=== PATIENT | female | born 1940 | race Caucasian/White ===

== ENCOUNTER 2022-07-19 08:14 | Day surgery (SDC) | payer OTHER ==
[~2022-07-19] VITALS: Ht 157.5 cm; Wt 52.2 kg
[2022-07-19] MEDS ORDERED: SYMBICORT 160-4.6 GM (08:41)
[2022-07-19] MEDS ORDERED: CARV25 PO (08:41)
[2022-07-19] MEDS ORDERED: CLOP75 PO (08:42)
[2022-07-19] MEDS ORDERED: Flonase 0.05% N16 GM (08:43)
[2022-07-19] MEDS ORDERED: HYDRA25 PO (08:44)
[2022-07-19] MEDS ORDERED: Isosorbide Mono30 MG (08:45)
[2022-07-19] MEDS ORDERED: HYDCHL25 PO (08:45)
[2022-07-19] MEDS ORDERED: LISI20 PO (08:46)
[2022-07-19] MEDS ORDERED: NITR.4SL SL (08:46)
[2022-07-19] MEDS ORDERED: Percocet 10-321 EACH PO (08:47)
[2022-07-19] MEDS ORDERED: PANT40 (08:48)
[2022-07-19] MEDS ORDERED: PREG75 (08:49)
--- NOTE | 2022-07-19 08:55 | NUR ---
07/19/22 0855 TIAGO PHAM TETRECAINE: [id number] PLEDGIT: [id number]
--- NOTE | 2022-07-19 10:10 | NUR ---
07/19/22 1010 Bernard Dubose PT STATES SHE HAS TAPE ALLERGY. TAPE ON EYESHIELD SWITCHED FROM PLASTIC TO PAPER.
== END 2022-07-19 10:11 | disposition home or self-care (01) ==
LOC: ORSCSDS 08:14
PROVIDERS: Ophthalmology
PROC: 08DJ3ZZ Extraction of Right Lens, Percutaneous Approach (ICD-10-PCS; principal; 2022-07-19 09:30)
DX: H25.11 Age-related nuclear cataract, right eye (principal); H21.81 Floppy iris syndrome; I25.2 Old myocardial infarction; I25.10 Atherosclerotic heart disease of native coronary artery without angina pectoris; K21.9 Gastro-esophageal reflux disease without esophagitis; Z79.01 Long term (current) use of anticoagulants; Z79.899 Other long term (current) drug therapy
CPT/HCPCS: J2001; J2250; J3010; J3301; J7040; V2632

== ENCOUNTER 2022-08-09 06:48 | Day surgery (SDC) | payer OTHER ==
[~2022-08-09] VITALS: Ht 157.5 cm; Wt 51.6 kg
[~2022-08-09 06:48] MED LIST: CARV25 PO; CLOP75 PO; Flonase 0.05% N16 GM; HYDCHL25 PO; HYDRA25 PO; Isosorbide Mono30 MG; LISI20 PO; NITR.4SL SL; PANT40; PREG75; Percocet 10-321 EACH PO; SYMBICORT 160-4.6 GM
[2022-08-09] MEDS ORDERED: Cymbalta20 MG PO (07:36)
[2022-08-09] MEDS ORDERED: METO25ER PO (07:36)
[2022-08-09 09:29] VITALS: BP 211/103
--- NOTE | 2022-08-09 09:36 | NUR ---
08/09/22 09[address] Valerie [address]ousse[address]ATE ENTRY [address] TOTH INTO SEE THE PT AND HER SON LIBRADO. HE INSTRUCTED THEM TO BE SEEN AT THE OFFICE TODAY AT 1:30PM, FURTHER INSTRUCTIONS WILL BE GIVEN AT THAT TIME. PT AND SON LIBRADO AGREE TO PLAN.
== END 2022-08-09 09:36 | disposition home or self-care (01) ==
LOC: ORSCSDS 06:48
PROVIDERS: Ophthalmology
PROC: 08RK3JZ Replacement of Left Lens with Synthetic Substitute, Percutaneous Approach (ICD-10-PCS; principal; 2022-08-09 08:00)
DX: H25.12 Age-related nuclear cataract, left eye (principal); H21.81 Floppy iris syndrome; I10 Essential (primary) hypertension; I25.2 Old myocardial infarction; Z79.899 Other long term (current) drug therapy
CPT/HCPCS: J2001; J2250; J3010; J3301; J7040; V2630

== ENCOUNTER → 2022-08-15 | Outpatient (CLI) | payer OTHER ==
[~2022-08-15] MED LIST changes: +Cymbalta20 MG PO; +METO25ER PO
== END | disposition home or self-care (01) ==
LOC: PLD 11:37 → LAB SHORT 11:37
DX: C44.311 Basal cell carcinoma of skin of nose (principal); C44.319 Basal cell carcinoma of skin of other parts of face; L57.0 Actinic keratosis
CPT/HCPCS: 88305

== ENCOUNTER 2022-12-28 12:10 | Emergency (ER) | payer OTHER ==
[~2022-12-28] VITALS: Ht 152.4 cm; Wt 54.4 kg
[~2022-12-28 12:10] MED LIST changes: +DOCU100 PO; +DULCOLAX400 MG/5 M PO; -Isosorbide Mono30 MG; +Isosorbide Mono30 MG PO; +LATA.005SO BOTHEYES; +METO50ER PO; -PANT40; +PANT40 PO; +TIMO.5OPSO LEFTEYE
[2022-12-28 13:05] VITALS: BP 120/80
[2022-12-28 13:50] LABS: BASOPHILS ABSOLUTE AUTO 0.02 K/mm3 (0.00-0.23); BASOPHILS PERCENT AUTO 0 % (0-2); EOSINOPHILS ABSOLUTE AUTO 0.23 K/mm3 (0.00-0.68); EOSINOPHILS PERCENT AUTO 3 % (0-6); Hematocrit 30.1 % (33.0-51.0); Hemoglobin 10.1 g/dL (11.5-16.0); IMMATURE GRAN ABSOLUTE AUTO 0.01 K/mm3 (0.00-0.10); IMMATURE GRAN PERCENT AUTO 0 % (0-1); LYMPHOCYTES ABSOLUTE AUTO 1.22 K/mm3 (0.84-5.20); LYMPHOCYTES PERCENT AUTO 18 % (21-46); MONOCYTES ABSOLUTE AUTO 0.57 K/mm3 (0.16-1.47); MONOCYTES PERCENT AUTO 8 % (4-13); Mean Corpuscular HGB 30.8 pg (26.0-34.0); Mean Corpuscular HGB Conc 33.6 g/dL (31.5-36.5); Mean Corpuscular Volume 92 fL (80-100); Mean Platelet Volume 10.2 fL (9.1-12.4); NEUTROPHILS ABSOLUTE AUTO 4.76 K/mm3 (1.96-9.15); NEUTROPHILS PERCENT AUTO 70 % (41-73); Platelet Count 289 K/mm3 (150-400); RDW Coefficient Variation 13.1 % (11.7-14.2); RDW Standard Deviation 44.2 fL (35.1-46.3); Red Blood Cell Count 3.28 M/mm3 (3.80-5.20); White Blood Cell Count 6.81 K/mm3 (4.00-11.30)
[2022-12-28 14:09] LABS: Albumin, Blood 3.5 g/dL (3.4-5.0); Bilirubin, Total 0.5 mg/dL (0.1-1.0); Bun/Creatinine Ratio 17.9 (12.0-20.0); Calcium, Blood 8.9 mg/dL (8.5-10.1); Creatinine, Blood 0.73 mg/dL (0.40-1.00); Globulin, Blood 3.5 g/dL (2.2-4.0); Potassium, Blood 4.2 mmol/L (3.5-5.5)
== END 2022-12-28 15:49 | disposition left against medical advice (07) ==
LOC: ER 12:10
PROVIDERS: Physician Assistant
DX: R06.02 Shortness of breath (principal); Z53.29 Procedure and treatment not carried out because of patient's decision for other reasons
CPT/HCPCS: 71046; 80053; 84484; 85025; 93005; 93010; 99284-25

== ENCOUNTER 2023-02-05 08:39 | Emergency (ER) | payer OTHER ==
[~2023-02-05] VITALS: Ht 157.5 cm; Wt 55.8 kg
[2023-02-05 09:21] LABS: BASOPHILS ABSOLUTE AUTO 0.02 K/mm3 (0.00-0.23); BASOPHILS PERCENT AUTO 0 % (0-2); EOSINOPHILS ABSOLUTE AUTO 0.16 K/mm3 (0.00-0.68); EOSINOPHILS PERCENT AUTO 3 % (0-6); Hematocrit 25.7 % (33.0-51.0); Hemoglobin 8.5 g/dL (11.5-16.0); IMMATURE GRAN ABSOLUTE AUTO 0.02 K/mm3 (0.00-0.10); IMMATURE GRAN PERCENT AUTO 0 % (0-1); LYMPHOCYTES PERCENT AUTO 14 % (21-46); MONOCYTES ABSOLUTE AUTO 0.51 K/mm3 (0.16-1.47); MONOCYTES PERCENT AUTO 8 % (4-13); Mean Corpuscular HGB 30.6 pg (26.0-34.0); Mean Corpuscular HGB Conc 33.1 g/dL (31.5-36.5); Mean Corpuscular Volume 92 fL (80-100); Mean Platelet Volume 10.7 fL (9.1-12.4); NEUTROPHILS ABSOLUTE AUTO 4.89 K/mm3 (1.96-9.15); NEUTROPHILS PERCENT AUTO 75 % (41-73); Platelet Count 250 K/mm3 (150-400); RDW Coefficient Variation 14.1 % (11.7-14.2); Red Blood Cell Count 2.78 M/mm3 (3.80-5.20)
[2023-02-05 09:40] LABS: Albumin, Blood 3.5 g/dL (3.4-5.0); Albumin/Globulin Ratio 1.2 (0.8-1.8); Bilirubin, Total 0.3 mg/dL (0.1-1.0); Bun/Creatinine Ratio 18.1 (12.0-20.0); Calcium, Blood 8.5 mg/dL (8.5-10.1); Creatinine, Blood 0.77 mg/dL (0.40-1.00); Globulin, Blood 2.9 g/dL (2.2-4.0); Potassium, Blood 3.5 mmol/L (3.5-5.5); Total Protein, Blood 6.4 g/dL (6.4-8.2)
[2023-02-05] MEDS ORDERED: K-Dur10 MEQ PO (11:16)
[2023-02-05] MEDS ORDERED: FURO20 PO (11:16)
[2023-02-05 11:30] VITALS: BP 120/77
== END 2023-02-05 11:38 | disposition home or self-care (01) ==
LOC: ER 08:39
PROVIDERS: Emergency Medicine
DX: I50.9 Heart failure, unspecified (principal); Z91.048 Other nonmedicinal substance allergy status; Z79.899 Other long term (current) drug therapy; M06.9 Rheumatoid arthritis, unspecified
CPT/HCPCS: 71046; 80053; 83880; 84484; 85025; 93005; 93010; 96374; 99285-25; A9270; J1940

== ENCOUNTER 2023-10-01 03:34 | Emergency (ER) | payer OTHER ==
[~2023-10-01] VITALS: Ht 165.1 cm; Wt 59.0 kg
[~2023-10-01 03:34] MED LIST changes: +FURO20 PO; +K-Dur10 MEQ PO
[2023-10-01] MEDS ORDERED: Ondansetron HCl 2 MG / ML 2ML Vial IV ONE (03:45)
[2023-10-01] MEDS ORDERED: NS 1,000 ML IV SCH (03:45)
[2023-10-01 03:53] LABS: BASOPHILS ABSOLUTE AUTO 0.03 K/mm3 (0.00-0.23); BASOPHILS PERCENT AUTO 0 % (0-2); EOSINOPHILS ABSOLUTE AUTO 0.04 K/mm3 (0.00-0.68); EOSINOPHILS PERCENT AUTO 0 % (0-6); Hematocrit 38.1 % (33.0-51.0); Hemoglobin 12.9 g/dL (11.5-16.0); IMMATURE GRAN ABSOLUTE AUTO 0.06 K/mm3 (0.00-0.10); IMMATURE GRAN PERCENT AUTO 0 % (0-1); LYMPHOCYTES ABSOLUTE AUTO 0.84 K/mm3 (0.84-5.20); LYMPHOCYTES PERCENT AUTO 6 % (21-46); MONOCYTES ABSOLUTE AUTO 0.69 K/mm3 (0.16-1.47); MONOCYTES PERCENT AUTO 5 % (4-13); Mean Corpuscular HGB 30.5 pg (26.0-34.0); Mean Corpuscular HGB Conc 33.9 g/dL (31.5-36.5); Mean Corpuscular Volume 90 fL (80-100); Mean Platelet Volume 9.7 fL (9.1-12.4); NEUTROPHILS ABSOLUTE AUTO 13.46 K/mm3 (1.96-9.15); NEUTROPHILS PERCENT AUTO 89 % (41-73); Platelet Count 323 K/mm3 (150-400); RDW Standard Deviation 43.2 fL (35.1-46.3); Red Blood Cell Count 4.23 M/mm3 (3.80-5.20); White Blood Cell Count 15.12 K/mm3 (4.00-11.30)
[2023-10-01] MEDS ORDERED: SPIRONOLACTONE25 MG PO (04:10)
[2023-10-01] MEDS ORDERED: ENTRESTO 49 MG1 EAC7 PO (04:11)
[2023-10-01] MEDS ORDERED: FENTANYL1 EA10 TOP (04:11)
[2023-10-01 04:19] LABS: Albumin, Blood 4.6 g/dL (3.4-5.0); Bilirubin, Total 0.9 mg/dL (0.1-1.0); Bun/Creatinine Ratio 18.5 (12.0-20.0); Creatinine, Blood 0.7 mg/dL (0.40-1.00); Globulin, Blood 4.4 g/dL (2.2-4.0); Potassium, Blood 3.5 mmol/L (3.5-5.5)
[2023-10-01 05:00] VITALS: BP 177/104
[2023-10-01 05:03] LABS: Source, Urine Clean Catch
[2023-10-01 05:08] LABS: Bilirubin, Urine Neg (Neg); Blood, Urine 4+ (Neg); Glucose Qualitative, Urine 1+ (Neg); Ketones, Urine 2+ (Neg); Leukocyte Esterase, Urine Neg (Neg); Nitrite, Urine Neg (Neg); Protein, Urine 3+ (Neg); Urobilinogen, Urine NORM (Normal)
[2023-10-01 05:23] LABS: Appearance, Urine Clear (Clear); Color, Urine Yellow (P-Yellow)
[2023-10-01 05:24] LABS: Bacteria Not Seen /hpf; Squamous Epithelial Cells Not Seen /hpf (Few); White Blood Cells, Urine Not Seen /hpf (0-5)
[2023-10-01] MEDS ORDERED: Ondansetron Odt8 MG MM (05:31)
== END 2023-10-01 06:07 | disposition home or self-care (01) ==
LOC: ER 03:34
PROVIDERS: Emergency Medicine
DX: R11.2 Nausea with vomiting, unspecified (principal); Z87.891 Personal history of nicotine dependence; Z79.51 Long term (current) use of inhaled steroids; Z79.02 Long term (current) use of antithrombotics/antiplatelets; Z79.899 Other long term (current) drug therapy; Z88.8 Allergy status to other drugs, medicaments and biological substances
CPT/HCPCS: 71045; 80053; 81001; 84484; 85025; 93005; 93010; 96361; 96374; 99284-25; J2405; J7030

== ENCOUNTER 2024-04-26 15:25 | Inpatient (IN) | payer OTHER ==
[~2024-04-26] VITALS: Ht 157.5 cm; Wt 55.1 kg
[~2024-04-26 15:25] MED LIST changes: +ENTRESTO 49 MG1 EAC7 PO; +Etomidate 2MG / ML 10ML Vial IV ONE; +FENTANYL1 EA10 TOP; +LORazepam 2 MG/ML 1ML Injection IV ONE; +Ondansetron Odt8 MG MM; +Rocuronium Bromide 10 MG/ML 5ML Injection IV ONE; +SPIRONOLACTONE25 MG PO
[2024-04-26] MEDS ORDERED: Ipratropium/Albuterol SulF 2.5-0.5MG/3 ML Amp INH ONE (15:45)
[2024-04-26] MEDS ORDERED: Acetaminophen325 M1 PO (15:55)
[2024-04-26] MEDS ORDERED: ALBU90OI INH (15:55)
[2024-04-26 16:12] LABS: BASOPHILS ABSOLUTE AUTO 0.02 K/mm3 (0.00-0.23); BASOPHILS PERCENT AUTO 0 % (0-2); EOSINOPHILS ABSOLUTE AUTO 0.01 K/mm3 (0.00-0.68); EOSINOPHILS PERCENT AUTO 0 % (0-6); Hematocrit 31.9 % (33.0-51.0); Hemoglobin 10.5 g/dL (11.5-16.0); IMMATURE GRAN ABSOLUTE AUTO 0.03 K/mm3 (0.00-0.10); IMMATURE GRAN PERCENT AUTO 0 % (0-1); LYMPHOCYTES ABSOLUTE AUTO 1.41 K/mm3 (0.84-5.20); LYMPHOCYTES PERCENT AUTO 17 % (21-46); MONOCYTES ABSOLUTE AUTO 0.63 K/mm3 (0.16-1.47); MONOCYTES PERCENT AUTO 8 % (4-13); Mean Corpuscular HGB 30.3 pg (26.0-34.0); Mean Corpuscular HGB Conc 32.9 g/dL (31.5-36.5); Mean Corpuscular Volume 92 fL (80-100); Mean Platelet Volume 10.4 fL (9.1-12.4); NEUTROPHILS ABSOLUTE AUTO 5.99 K/mm3 (1.96-9.15); NEUTROPHILS PERCENT AUTO 74 % (41-73); Platelet Count 265 K/mm3 (150-400); RDW Coefficient Variation 14.3 % (11.7-14.2); RDW Standard Deviation 48.4 fL (35.1-46.3); Red Blood Cell Count 3.46 M/mm3 (3.80-5.20); White Blood Cell Count 8.09 K/mm3 (4.00-11.30)
[2024-04-26 16:20] LABS: CORONAVIRUS COVID-19 AG Negative (NEGATIVE); INFLUENZA A AG Positive (NEGATIVE); INFLUENZA B AG Negative (NEGATIVE)
[2024-04-26 16:24] LABS: Albumin, Blood 3.6 g/dL (3.4-5.0); Albumin/Globulin Ratio 0.9 (0.8-1.8); Bilirubin, Total 0.7 mg/dL (0.1-1.0); Bun/Creatinine Ratio 17.8 (12.0-20.0); Calcium, Blood 8.7 mg/dL (8.5-10.1); Creatinine, Blood 1.52 mg/dL (0.40-1.00); Globulin, Blood 3.9 g/dL (2.2-4.0); Potassium, Blood 5.5 mmol/L (3.5-5.5); Total Protein, Blood 7.5 g/dL (6.4-8.2)
[2024-04-26 17:07] LABS: Base Excess Venous -9.1 mmol/L; Bicarbonate Venous 17.7 mmol/L (24.0-30.0); PCO2 Venous 36.8 mmHg (38-42); pH Blood Venous 7.29 (7.34-7.37)
[2024-04-26] MEDS ORDERED: Ipratropium/Albuterol SulF 2.5-0.5MG/3 ML Amp INH SCH (17:35)
[2024-04-26] MEDS ORDERED: Metoclopramide HCl 5MG / ML 2ML Vial IV PRN (17:35)
[2024-04-26] MEDS ORDERED: Aspirin 325 MG Tab PO ONE (17:35)
[2024-04-26] MEDS ORDERED: Ondansetron HCl 2 MG / ML 2ML Vial IV PRN (17:35)
[2024-04-26] MEDS ORDERED: FLU VACC TS2024-25(6MOS UP)/PF 45 MCG/0.5 ML SYRINGE IM SCH (17:35)
[2024-04-26] MEDS ORDERED: Albuterol 2.5 MG/3 ML VIAL INH PRN (17:40)
[2024-04-26] MEDS ORDERED: HydrALAZINE HCl 20 MG / ML 1ML Vial IV PRN (17:40)
[2024-04-26] MEDS ORDERED: NS 1,000 ML IV SCH (17:40)
[2024-04-26 18:00] LABS: Magnesium, Blood 2.5 mg/dL (1.6-2.4)
[2024-04-26] MEDS ORDERED: Oseltamvir Phosphate 30 MG Cap PO SCH (18:00)
[2024-04-26 18:02] LABS: Thyroid Stimulating Hormone 1.21 uIU/mL (0.360-4.800)
[2024-04-26 19:25] LABS: Anti-Xa UFH, PHA Monitoring <0.10 IU/mL; International Normalized Ratio 1.04; Prothrombin Time Results 11.1 Sec (9.7-11.5)
[2024-04-26] MEDS ORDERED: Dose Adjust by Pharmacy XX STA (19:38)
[2024-04-26] MEDS ORDERED: Heparin Sodium 5000 Units/ML 1ML MDV IV ONE (19:40)
[2024-04-26] MEDS ORDERED: Heparin Sodium,Porcine/0.5 NS 500 ML IV SCH (19:40)
[2024-04-26 21:23] LABS: Base Excess Venous -5.2 mmol/L; Bicarbonate Venous 20.1 mmol/L (24.0-30.0); PCO2 Venous 48.1 mmHg (38-42); pH Blood Venous 7.27 (7.34-7.37)
[2024-04-26 21:40] LABS: Calcium, Blood 8.4 mg/dL (8.5-10.1); Creatinine, Blood 1.5 mg/dL (0.40-1.00); Potassium, Blood 4.5 mmol/L (3.5-5.5)
[2024-04-26] MEDS ORDERED: Sodium Bicarb 8.4% Inj 150 MEQ in Dextrose 5% 1,000 ML IV SCH (21:45)
[2024-04-26 23:43] LABS: Base Excess Venous -2.2 mmol/L; Bicarbonate Venous 22.3 mmol/L (24.0-30.0); PCO2 Venous 36.3 mmHg (38-42)
[2024-04-26 23:45] VITALS: BP 135/108
[2024-04-27] VITALS (43 sets, daily range): BP systolic 60–189; BP diastolic 38–169
[2024-04-27 02:54] LABS: BASOPHILS ABSOLUTE AUTO 0.02 K/mm3 (0.00-0.23); BASOPHILS PERCENT AUTO 0 % (0-2); EOSINOPHILS ABSOLUTE AUTO 0.02 K/mm3 (0.00-0.68); EOSINOPHILS PERCENT AUTO 0 % (0-6); Hematocrit 31.6 % (33.0-51.0); Hemoglobin 10.9 g/dL (11.5-16.0); IMMATURE GRAN ABSOLUTE AUTO 0.05 K/mm3 (0.00-0.10); IMMATURE GRAN PERCENT AUTO 1 % (0-1); LYMPHOCYTES ABSOLUTE AUTO 1.25 K/mm3 (0.84-5.20); LYMPHOCYTES PERCENT AUTO 13 % (21-46); MONOCYTES ABSOLUTE AUTO 0.68 K/mm3 (0.16-1.47); MONOCYTES PERCENT AUTO 7 % (4-13); Mean Corpuscular HGB 29.9 pg (26.0-34.0); Mean Corpuscular HGB Conc 34.5 g/dL (31.5-36.5); Mean Platelet Volume 10.5 fL (9.1-12.4); NEUTROPHILS ABSOLUTE AUTO 7.36 K/mm3 (1.96-9.15); NEUTROPHILS PERCENT AUTO 79 % (41-73); Platelet Count 193 K/mm3 (150-400); RDW Standard Deviation 44.7 fL (35.1-46.3); Red Blood Cell Count 3.64 M/mm3 (3.80-5.20); White Blood Cell Count 9.38 K/mm3 (4.00-11.30)
[2024-04-27 02:59] LABS: Mean Corpuscular Volume 87 fL (80-100)
[2024-04-27] MEDS ORDERED: Furosemide 10 MG/ML 4ML Vial ONE (03:09)
[2024-04-27] MEDS ORDERED: Metoprolol Tartrate 5 ML IV ONE (03:09)
[2024-04-27 03:10] LABS: Albumin, Blood 3.7 g/dL (3.4-5.0); Bilirubin, Total 0.4 mg/dL (0.1-1.0); Bun/Creatinine Ratio 19.6 (12.0-20.0); Calcium, Blood 8.6 mg/dL (8.5-10.1); Creatinine, Blood 1.58 mg/dL (0.40-1.00); Globulin, Blood 3.6 g/dL (2.2-4.0); Magnesium, Blood 2.3 mg/dL (1.6-2.4); Potassium, Blood 4.8 mmol/L (3.5-5.5); Total Protein, Blood 7.3 g/dL (6.4-8.2)
[2024-04-27] MEDS ORDERED: Furosemide 10 MG/ML 4ML Vial IV STA (03:12)
[2024-04-27] MEDS ORDERED: LORazepam 2 MG/ML 1ML Injection IV PRN (03:20)
[2024-04-27] MEDS ORDERED: LORazepam 2 MG/ML 1ML Injection IV ONE (03:30)
[2024-04-27] MEDS ORDERED: Furosemide 10 MG/ML 4ML Vial IV ONE (03:30)
[2024-04-27] MEDS ORDERED: Dose Adjust by Pharmacy XX STA ×3 (03:36→18:23)
--- NOTE | 2024-04-27 03:58 | NUR ---
NURSING NOTE 04/27/24 @ 0250 PT UP TO BEDSIDE COMMODE FOR BOWEL MOVEMENT. WHILE SITTING ON THE COMMODE, THE PATIENT'S HEART RATE INCREASED SIGNIFICANTLY FROM 80'S-90'S TO 150'S-170'S, SPIKING UP TO 190'S, PROMOTING A RAPID RESPONSE. INTERVENTIONS: - RAPID RESPONSE TEAM NOTIFIED, ARRIVED PROMPTLY. - PER MD ORDERS, PATIENT WAS ADMINISTERED 40MG IV LASIX AND 0.5MG IV ATIVAN FOR SYMPTOM MANAGEMENT. - BLOOD PRESSURE WAS INITALLY LOW (60/38) AND THEN REMAINED ELEVATED THROUGHOUT THE REST OF THE EVENT, NO CARDIOVERSION WAS PERFORMED. - CONTINUOUS MONITORING OF HEART RATE AND BLOOD PRESSURE WAS MAINTAINED. CLINICAL PROGRESSION: DESPITE INTERVENTIONS, THE PATIENT'S HEART RATE REMAINED ELEVATED AND PATIENT CONTINUED TO SHOW SIGNS OF SIGNIFICANT DISTRESS. DR. LOUIE RECOMMENDED TRANSFERRING THE PATIENT TO THE ICU FOR FURTHER MANAGEMENT. OUTCOME: PATIENT WAS TRANSFERRED TO THE ICU IN CRITICAL CONDITION. BEDSIDE HANDOFF WAS DONE WITH MILA.
[2024-04-27] MEDS ORDERED: Metoprolol Tartrate 1 MG/ML 5 ML VIAL IV ONE (04:15)
--- NOTE | 2024-04-27 04:19 | NUR ---
PCU TRANSFER TO ICU 2: PT ARRIVED TO THE UNIT AT 0315 ON BIPAP, AFIB RVR ON MONITOR WITH RATE 160-190'S, SBP 70-190'S. LUNGS COARSE T/O, SPO2 90<. JACY AT BEDSIDE. BEDSIDE REPORT RECEIVED FROM SHERI PALOMO. PT UNRESPONSIVE POST ATIVAN ADMINISTRATION IN PCU. JACY WITH DECISION TO INTUBATE. 0348: 10 ETOMIDATE, 80 ROCCURONIUM ADMINISTERED. RT BAGGIN PT, VSS. 0350: 7.5 ETT, 24 @ TEETH, BILAT. BREATH SOUNDS, EVEN CHEST RISE AND FALL. PT INTUBATED WITH SETTINGS AC/VC 18/380/10/100. 5 MG OF METOPROLOL GIVEN PER JACY; GOOD EFFECT, RATE 90-100'S. PT'S SON CALLED AND UPDATED ON CURRENT STATUS AND TREATMENT PLAN. TEMP CORTÉS PLACED; URINE CLEAR, YELLOW. OGT PLACED, CLAMPED.
[2024-04-27] MEDS ORDERED: propofoL 100 ML IV SCH (04:30)
[2024-04-27 04:44] LABS: Base Excess Venous -4.1 mmol/L; Bicarbonate Venous 20.2 mmol/L (24.0-30.0); PCO2 Venous 51.7 mmHg (38-42)
[2024-04-27 04:45] LABS: pH Blood Venous 7.26 (7.34-7.37)
[2024-04-27] MEDS ORDERED: Pantoprazole Sodium 40 MG Tab PO SCH (06:00)
[2024-04-27] MEDS ORDERED: HydrALAZINE HCl 20 MG / ML 1ML Vial IV PRN (06:05)
[2024-04-27] MEDS ORDERED: Pantoprazole Sodium 40 MG Injection IV SCH ×2 (06:20→09:00)
--- NOTE | 2024-04-27 06:26 | NUR ---
SHIFT SUMMARY: NO ACUTE CHANGES SINCE PREVIOUS NOTE; VSS. PT REMAINS INTUBATED AND SEDATED, VENT SETTINGS REMAIN THE SAME. PG PLACED TO DONN, PROPOFOL INITIATED AT 10 MCG. PT REMAINS UNRESPONSIVE TO PAIN STIMULI. HEPARIN GTT @ 14 UNITS/HR. WILL REPORT OFF TO ONCOMING RN.
[2024-04-27] MEDS ORDERED: Cetylpyridinium Chloride 1 EA MISC MT SCH (08:00)
[2024-04-27] MEDS ORDERED: Heparin Sodium 5000 Units/ML 1ML MDV SC SCH (09:00)
[2024-04-27] MEDS ORDERED: Metoprolol Succinate 50 MG TABCR PO SCH (09:00)
[2024-04-27] MEDS ORDERED: Clopidogrel Bisulfate 75 MG Tab PO SCH (09:00)
[2024-04-27] MEDS ORDERED: Ipratropium/Albuterol SulF 2.5-0.5MG/3 ML Amp INH PRN (10:10)
[2024-04-27] MEDS ORDERED: FentaNYL Citrate 50 MCG/ML 2 ML Injection IV PRN (10:15)
[2024-04-27 10:26] LABS: Base Excess Venous -1.5 mmol/L; Bicarbonate Venous 22.6 mmol/L (24.0-30.0); PCO2 Venous 44.6 mmHg (38-42); pH Blood Venous 7.34 (7.34-7.37)
[2024-04-27] MEDS ORDERED: Hydrogen Peroxide 1.5 % Solution MT SCH (12:00)
[2024-04-27] MEDS ORDERED: Oseltamvir Phosphate 30 MG Cap PO SCH (18:00)
--- NOTE | 2024-04-27 20:45 | NUR ---
ASSUMPTION OF CARE ASSUMED CARE OF PATIENT AT 1900, BEDSIDE SHIFT REPORT RECEIVED FROM MARTITA RN. PT RESTING IN BED, INTUBATED AND SEDATED. PROPOFOL INFUSING AT 40MCG/KG/MIN. PT RESPONSIVE TO NOXIOUS STIMULI, WITHDRAWS EXTREMITIES TO NOXIOUS STIMULI, MOVES EXTREMITIES AND SHOULDERS SPONTANEOUSLY, GRIMACES WITH ORAL CARE. PT DOES NOT OPEN EYES OR FOLLOW DIRECTION WHEN PROMPTED. HR 90-110'S AFIB, MAP >65. VENT SETTINGS AC/VC 14/375/5/30%, OXYGEN SATURATION >95%. ABDOMEN SOFT, BOWEL TONES ACTIVE THROUGHOUT. OG TUBE IN PLACE INFUSING VHP AT GOAL RATE OF 20MLS/HR WITH 30ML Q4H WATER FLUSH. CORTÉS IN PLACE PATENT DRAINING YELLOW URINE TO GRAVITY. PIV IN PLACE TO RAC AND LAC, POWERGLIDE IN PLACE TO DONN. HEPARIN INFUSING AT 11UNITS/KG/HR. BED IN LOWEST POSITON, CARE CONITNUES.
[2024-04-28] VITALS (46 sets, daily range): BP systolic 89–178; BP diastolic 73–141
[2024-04-28] MEDS ORDERED: Dose Adjust by Pharmacy XX STA ×3 (01:16→14:32)
[2024-04-28 04:04] LABS: Hematocrit 29.2 % (33.0-51.0); Hemoglobin 10.3 g/dL (11.5-16.0); Mean Corpuscular HGB 30.5 pg (26.0-34.0); Mean Corpuscular HGB Conc 35.3 g/dL (31.5-36.5); Mean Corpuscular Volume 86 fL (80-100); Mean Platelet Volume 10.5 fL (9.1-12.4); Platelet Count 218 K/mm3 (150-400); RDW Coefficient Variation 14.1 % (11.7-14.2); RDW Standard Deviation 44.4 fL (35.1-46.3); Red Blood Cell Count 3.38 M/mm3 (3.80-5.20); White Blood Cell Count 7.73 K/mm3 (4.00-11.30)
[2024-04-28 04:22] LABS: Bun/Creatinine Ratio 24.3 (12.0-20.0); Calcium, Blood 8.1 mg/dL (8.5-10.1); Creatinine, Blood 1.44 mg/dL (0.40-1.00); Potassium, Blood 3.2 mmol/L (3.5-5.5)
[2024-04-28] MEDS ORDERED: Potassium Chloride 40 MEQ in NS 250 ML IV ONE (05:25)
--- NOTE | 2024-04-28 06:12 | NUR ---
SHIFT SUMMARY NO ACUTE CHANGES THIS SHIFT. PT CONTINUES TO REST IN BED, INTUBATED AND SEDATED. PROPOFOL INFUSING AT 40MCG/KG/MIN. PT DOES NOT OPEN EYES OR FOLLOW DIRECTION WHEN PROMPTED. PT WITHDRAWS ALL EXTREMITIES TO NOXIOUS STIMULI, MOVES EXTREMITIES SPONTANEOUSLY. HR 90-110'S AFIB, MAP >65. VENT SETTINGS AC/VC 14/375/5/30%, OXYGEN SATURATION >95%. ABDOMEN SOFT, BOWEL TONES ACTIVE THROUGHOUT, VHP INFUSING AT GOAL RATE OF 20MLS WITH 30ML Q4H WATER FLUSH. TEMP CORTÉS IN PLACE PATENT DRAINING YELLOW URINE TO GRAVITY. POWERGLIDE IN PLACE TO DONN, PIV IN PLACE TO RAC AND LAC. HEPARIN INFUSING AT 10UNITS/KG/HR. BED IN LOWEST POSITION, CARE CONTINUES.
[2024-04-28] MEDS ORDERED: Furosemide 10 MG / ML 2ML Vial IV STA (08:42)
[2024-04-28] MEDS ORDERED: Metoprolol Tartrate 25 MG Tab PO SCH (09:00)
--- NOTE | 2024-04-28 09:51 | NUR ---
DR. AG AT BEDSIDE TO ASSESS POSSIBLE EXTUBATION. PATIENT PASSED SBT AND SEDATION VACATION. PATIENT EXTUBATED AT 0918. SHORTLY AFTER PATIENT PLACED BACK ON BIPAP. DR. AG AT BEDSIDE FOR POSSIBLE REINTUBATION GIVEN PT'S RR IS HIG 30'S LOW 40'S. PT ATTEMPTING TO USE BEDPAN AT THE MOMENT. DR. yDer DECIDING TO GIVE THE PATIENT A FEW MORE MINTUES RR AND TIDAL VOLUMES IMPROVING. WILL CONTINUE TO MONITOR PATIENT STATUS.
[2024-04-28] MEDS ORDERED: propofoL 100 ML IV SCH (10:00)
[2024-04-28] MEDS ORDERED: Acetaminophen 160MG / 5ML 10.15 UDC PO PRN (10:35)
[2024-04-28] MEDS ORDERED: Acetaminophen 325 MG TABLET PO PRN (11:55)
[2024-04-28] MEDS ORDERED: Oseltamvir Phosphate 30 MG Cap PT SCH (12:00)
[2024-04-28] MEDS ORDERED: Oseltamvir Phosphate 6 MG/ML 1MLORALSYR PT SCH (12:00)
[2024-04-28] MEDS ORDERED: Acetaminophen 325 MG Supp PR PRN (13:00)
[2024-04-28] MEDS ORDERED: FentaNYL Citrate 50 MCG/ML 2 ML Injection IV PRN (16:00)
[2024-04-28] MEDS ORDERED: Etomidate 2MG / ML 10ML Vial IV ONE (16:30)
--- NOTE | 2024-04-28 19:00 | NUR ---
ASSUMED CARE OF PT AT 1900 PT RESTING IN BED, ALERT AND ORIENTED TO SELF AND SITUATION. PT FOLLOWING COMMANDS AND ABLE TO MAKE HER NEEDS KNOWN. PT WEARING BI-PAP AND CONSISTENTLY TAKING OFF FACE, STS ITS UNCOMFORTABLE. PT EDUCATED ON IMPORTANCE, WILL CONTINUE TO REINFORCE. MAINTAINING O2 SATS>95%. LUNG SOUNDS COARSE T/O. AFIB RATE OF 100-110S ON MONITOR. INCREASES W/ ACTIVITY AND MOVEMENT. BP STABLE. PT AFEBRILE. NO SKIN ISSUES OBSERVED. PT HAS CORTÉS CATH, PATENT AND DRAINING CLEAR YELLOW URINE TO GRAVITY. CALL LIGHT W/ IN REACH. PLAN OF CARE ONGOING
[2024-04-28] MEDS ORDERED: Metoprolol Tartrate 1 MG/ML 5 ML VIAL IV PRN (20:00)
[2024-04-28] MEDS ORDERED: Ondansetron HCl 2 MG / ML 2ML Vial IV PRN (23:30)
[2024-04-29] VITALS (25 sets, daily range): BP systolic 141–188; BP diastolic 91–139
[2024-04-29] MEDS ORDERED: Digoxin 0.25 MG/ML 2ML Amp IV SCH (01:00)
[2024-04-29 01:31] LABS: Anion Gap 14 mmol/L (3-11); Blood Urea Nitrogen 28 mg/dL (8-24); Bun/Creatinine Ratio 23.9 (12.0-20.0); CO2, Blood 26 mmol/L (21-32); Calcium, Blood 8.7 mg/dL (8.5-10.1); Chloride, Blood 97 mmol/L (98-108); Creatinine, Blood 1.17 mg/dL (0.40-1.00); Digoxin (Lanoxin) 0.14 ug/mL (0.80-2.00); Glomerular Filtration Rate 46 (60-); Glucose, Blood 126 mg/dL (70-99); Potassium, Blood 3.4 mmol/L (3.5-5.5); Sodium, Blood 134 mmol/L (136-145)
[2024-04-29 05:35] LABS: Hemoglobin 10.3 g/dL (11.5-16.0); Mean Platelet Volume 10.8 fL (9.1-12.4); Platelet Count 219 K/mm3 (150-400)
--- NOTE | 2024-04-29 05:53 | NUR ---
End of shift summary. No acute events overnight. Pt was awake during most of shift. Pt aox2. Pt calls out for needs and does use call light- tried to get self out of bed. Requires redirection and safety education. Bed alarm in place and curtain/door open for frequent monitoring. PT did not tolerate bipap and wore 2l via nc t/o majority of shift, maintained sats >95%. Lung sounds remain coarse- pt has frequent weak cough. Pt given ice chips and tolerated well. Heparin infusion rate unchanged. Pt afib on monitor- required prn dose of lopressor for rate of 130-150s w/ little effect. Dr. Bray contacted and digoxin ordered. Pt rate after admin 120s. Bp stable. Pt afebrile during shift. Gannon cath patent w/ good output. Pt had 2 bms during shift. Pt assisted to bedside commode, pt remains weak. Pt repositioned self frequently and boosted in bed when needed. No skin issues noted. Plan of care ongoing
[2024-04-29] MEDS ORDERED: Clarify Drug Order XX ONE (06:05)
[2024-04-29 06:11] LABS: Bun/Creatinine Ratio 24.1 (12.0-20.0); Calcium, Blood 8.9 mg/dL (8.5-10.1); Creatinine, Blood 1.12 mg/dL (0.40-1.00); Potassium, Blood 3.3 mmol/L (3.5-5.5)
[2024-04-29] MEDS ORDERED: Potassium Chloride 40 MEQ in NS 250 ML IV ONE (06:50)
[2024-04-29] MEDS ORDERED: Sacubitril/Valsartan 24 MG-26 MG Tab PO SCH (09:00)
[2024-04-29] MEDS ORDERED: Metoprolol Succinate 50 MG TABCR PO SCH (09:00)
[2024-04-29] MEDS ORDERED: Oseltamvir Phosphate 6 MG/ML 1MLORALSYR PT SCH (10:23)
[2024-04-29] MEDS ORDERED: Heparin Sodium 5000 Units/ML 1ML MDV IV ONE (13:15)
--- NOTE | 2024-04-29 15:29 | NUR ---
PERSISTENT HYPERTENSION DESPITE AM MEDICATIONS. HR IMPROVED. DR. TY NOTIFIED AND ASSOCIATED ORDERS PLACED BY PROVIDER.
[2024-04-29] MEDS ORDERED: Isosorbide Mononitrate 30 MG TABCR PO SCH (16:00)
[2024-04-29] MEDS ORDERED: Spironolactone 25 MG Tab PO SCH (16:00)
--- NOTE | 2024-04-29 19:37 | NUR ---
PT A/O TO SELF, PLACE, FAMILY. REORIENTED TO DATE/TIME. TMAX 99.O TEMPORAL. LEFT PUPIL IRREGULAR. AFIB 120S-130S THIS MORNING. IV LOPRESSOR GIVEN WELL AM MEDICATIONS. HR IMPROVED, BP LARGELY UNCONTROLLED THROUGH SHIFT. ENTRESTO ADDED TO REGIMEN THIS MORNING. NOTIFIED DR. TY OF CONTINUED HTN. IMDUR AND ALDACTONE ADDED BACK FROM HOME MEDICATIONS. IV LOPRESSOR GIVEN AGAIN THIS AFTERNOON. PT ON 2LNC AT START OF SHIFT. O2 94% AND PATIENT CONTINUOUSLY REMOVING CANNULA FROM NOSE. PT ASSISTED TO CHAIR AROUND 1400 AND REMAINED IN CHAIR PER REQUEST WITH FAMILY VISITING REMAINDER OF SHIFT. PT PASSED SWALLOW EVAL AND STARTED ON LEVEL 6 DYSPHAGIA DIET. ATE A FEW BITES OF BREAKFAST BUT DECLINED LUNCH AND DINNER DESPITE ENCOURAGEMENT AND ASSISTANCE. SWALLOWS PILLS WHOLE WITH WATER WITH NO ISSUE. MULTIPLE SMALL BMS. CORTÉS REMOVED AM, URINATING VIA PUREWICK. MIDLINE AND PIV TO RUE. SAFETY, COMFORT, HYGIENE ADDRESSED. PT ASSISTED BACK TO BED AND BED ALARM ON.
[2024-04-29] MEDS ORDERED: Apixaban 5 MG Tab PO SCH (21:00)
[2024-04-30] VITALS (95 sets, daily range): BP systolic 109–205; BP diastolic 66–143
--- NOTE | 2024-04-30 01:04 | NUR ---
PT UPDATE: PERFORMED 12 LEAD ECG. PATIENT PRESENTS WITH ST DEPRESSION IN LEAD TWO THAT LOOKS LIKE IT STARTED AT ABOUT 1330, AROUND THE TIME THAT THE PATIENT GOT UP AND HAD A LOT OF EXERTION PER DAY SHIFT NURSE. ECG WAS UNREMARKABLE, NO SIGNIFICANT CHANGE FROM PREVIOUS ECG.
[2024-04-30 03:48] LABS: Bun/Creatinine Ratio 21.4 (12.0-20.0); Calcium, Blood 8.9 mg/dL (8.5-10.1); Creatinine, Blood 1.03 mg/dL (0.40-1.00); Potassium, Blood 3.7 mmol/L (3.5-5.5)
--- NOTE | 2024-04-30 05:32 | NUR ---
SHIFT SUMMARY: PT IS ALERT TO SELF AND AT TIME MORE LUCID. SHE IS PLEASANT, COOPERATIVE, AND REDIRECTABLE BUT FORGETFUL. PT HAD NOT BEEN TOLERATING THE BIPAP MASK NOR WOULD SHE WEAR OTHER SOURCES OF OXYGEN. HER SPO2 REMAINED ABOVE 90% ON ROOM AIR. HER HEART RATE WAS 90S-130S. SHE WAS TREATED WITH METOPROLOL FOR A RATE ABOVE 100. SHE REMAINS HYPERTENSIVE.
--- NOTE | 2024-04-30 06:17 | NUR ---
UPDATE SPOKE WITH JANICE ABOUT PTS ELEVATED BLOOD PRESSURE. REMAINS ELEVATED DESPITE MEDS. PT IS NOT RECEIVING THE CURRENT LEVEL OF PAIN MEDICATION THAT SHE DOES AT HOME. WILL TRY TO TREAT PAIN BETTER AND SEE IF THAT HELPS WITH HER BLOOD PRESSURE.
[2024-04-30] MEDS ORDERED: OxyCODONE HCL 5 MG TAB PO PRN (06:25)
[2024-04-30] MEDS ORDERED: OxyCODONE 10/Acetamin 325 TABLET PO PRN (07:40)
--- NOTE | 2024-04-30 08:34 | NUR ---
ASSUMED CARE OF PATIENT AT APPROXIMATELY 0700. REPORT RECEIVED FROM DARREN RN AND MILA RN. PT AWAKE IN BED, INTERACTING APPROPRIATELY WITH STAFF DURING BEDSIDE REPORT. CONTINOUS CARDIAC MONITORING IN PLACE SHOWS AFIB WITH HR IN 120'S-130'S. HYPERTENSIVE. HOSPITALIST AWARE AND MAKING CHANGES TO BP MEDICATIONS TO BE IMPLEMENTED THIS AM. RN TO NOTIFY IF BP DOES NOT IMPROVE IN 2 HOURS FOLLOWING MED ADMINISTRATION. ON 2LPM O2 VIA NC WITH SATURATION > 92%. SEE SHIFT ASSESSMENT FOR FULL DETAILS.
[2024-04-30] MEDS ORDERED: Sacubitril/Valsartan 49 MG/51 MG Tab PO SCH (09:00)
[2024-04-30] MEDS ORDERED: Metoprolol Succinate 50 MG TABCR PO SCH (09:00)
--- NOTE | 2024-04-30 09:55 | NUR ---
Pt. is awake and welcomes my visit. Pt. is pleasant, but does display some evidence of confusion. During our introduction family members who have travelled from [place] arrived. Pt. welcomed prayer. Prayed for Pt. Pt. and family verbalized gratitude for the spiritual care visit.
[2024-04-30] MEDS ORDERED: Labetalol HCL 5 MG/ML 4ML Injection (Single Dose) IV PRN (13:25)
[2024-04-30] MEDS ORDERED: Isosorbide Mononitrate 30 MG TABCR PO STA (13:36)
[2024-04-30] MEDS ORDERED: Spironolactone 25 MG Tab PO STA (13:37)
[2024-04-30] MEDS ORDERED: LORazepam 2 MG/ML 1ML Injection IV ONE (13:40)
[2024-04-30] MEDS ORDERED: Nitroglycerin/D5W 250 ML IV SCH (15:05)
[2024-04-30] MEDS ORDERED: Furosemide 10 MG / ML 2ML Vial IV ONE (15:10)
[2024-04-30] MEDS ORDERED: NiCARdipine HCL 50 MG in NS 250 ML IV SCH (16:45)
--- NOTE | 2024-04-30 18:47 | NUR ---
SHIFT SUMMARY AT APPROXIMATELY 1345 PT BECAME TACHYPNEIC WITH INCREASED WOB WHILE IN BEDSIDE CHAIR. PT WAS MOVED BACK TO BED AND PLACED ON BIPAP WITH SETTINGS OF 16/5 AND 30% PER RT. STAT ORDERS FOR IV LABETOLOL AND ADDITIONAL PO IMDUR AND SPIRONOLACTONE ORDERED PER HOSPITALIST. IV LABETOLOL WAS ADMINISTERED, HOWEVER PT MENTATION WOULD NOT ALLOW PO MEDICATION INTAKE SAFELY, SO THEY WERE HELD PER DR. AG AND A NITRO DRIP WAS STARTED. TITRATED WITH LITTLE TO NO EFFECT. FURTHER INTERVENTION WITH NICARDIPINE WAS STARTED. NITRO HAS SINCE BEEN TITRATED OFF AND NICARDIPINE IS INFUSING AT 7.5 MG/HR, SBP GOAL 140'S-150'. FAMILY AT BEDSIDE T/O ENTIRETY OF SHIFT AND UPDATED ON POC FREQUENTLY. WILL CONTINUE TO MONITOR AND REPORT TO ONCOMING RN.
--- NOTE | 2024-04-30 21:00 | NUR ---
ASSUMPTION OF CARE/ASSESSMENT: ASSUMED CARE OF PT AT 1900; REPORT RECIEVED FROM DELFINO PALOMO. PT SOMULENT IN BED, AROUSES TO VERBAL STIMULI AND DOES NOT FOLLOW DIRECTIONS AT THIS TIME. CURRENTLY BIPAP IN PLACE WITH SETTINGS 16/5, FI02 30% AND RATE OF 16; LUNGS CLEAR/DIM THROUGHOUT, SPO2 100. AFIB ON MONITOR WITH HR 90-100, NICARDIPINE GTT @ 7.5 MG/HR, SBP 110-120'S. PT HAS PUREWICK IN PLACE, YELLOW/CLOUDY URINE OUTPUT; ATTENDS IN PLACE, PT INCONTINENT AT THIS TIME. LIN IN BED, OBSERVED RESTLESS AND UNABLE TO GET COMFORTABLE IN BED DESPITE MULTIPLE REPOSITIONS. PT'S GRAND-DAUGHTER AT BEDSIDE WITH PLANS TO SPEND THE NIGHT. BED LOWERED, CALL LIGHT IN REACH.
[2024-05-01] VITALS (80 sets, daily range): BP systolic 88–155; BP diastolic 53–101
[2024-05-01 03:58] LABS: Bun/Creatinine Ratio 23.8 (12.0-20.0); Calcium, Blood 9.3 mg/dL (8.5-10.1); Creatinine, Blood 1.05 mg/dL (0.40-1.00); Potassium, Blood 3.3 mmol/L (3.5-5.5)
[2024-05-01] MEDS ORDERED: Potassium Chloride 40 MEQ in NS 250 ML IV ONE (05:30)
--- NOTE | 2024-05-01 05:49 | NUR ---
SHIFT SUMMARY: NO ACUTE CHANGES OVERNIGHT. SHORTLY AFTER 2100 NICARDIPINE GTT TITRATED OFF, PT SBP MAINTAINED 110-130'S FOR THE MAJORITY OF THE NIGHT. PT WAS SOMNOLENT AND UNABLE TO TAKE NIGHT TIME PO MEDS. AROUND 0300 SBP SUSTAINING IN 150'S AND NICARDIPINE GTT RESTARTED; CURRENTLY NICARDIPINE IS AT 5 MG/HR. PUREWICK REMAINS IN PLACE WITH GOOD URINE OUTPUT THIS SHIFT. NC @ 4LPM, PT LUNGS SOUND COARSE, PROMPTED TO COUGH AND USE FLUTTER VALVE THIS MORNING; PT RECEPTIVE TO TEACHING BUT OBSERVED WEAK WHEN ATTEMPTING TO USE FLUTTER VALVE. GOOD COUGH BUT FATIGUED EASILY. FAMILY EDUCATED AND INVOLVED IN PROMTING COUGHING AND FLUTTER VALVE USE. PT MORE ALERT TO VERBAL STIMULI THIS MORNING, CONTINUES TO BE DROWSY. WILL REPORT OFF TO ONCOMING RN.
--- NOTE | 2024-05-01 08:10 | NUR ---
ALLEN WAS SLEEPING DURING BSR ON NC. SHE AWAKENED TO VOICE, WAS REPOSITIONED, ANSWERED THAT SHE KNEW WHERE SHE WAS. WAS ABLE TO COUGH WHEN ASKED, LUNGS COARSE T/O WITH RHONCHI AND EXP. WHEEZE, GRANDDAUGHTER AWAY AT THE TIME. NOW BEGINS TO DESATURATE, PT PLACED ON BIPAP, SAME SETTINGS, INCREASED FIO2 TO 35% THEN TO 40% TO ACHIEVE SATS OF 90%.
[2024-05-01] MEDS ORDERED: Furosemide 20 MG Tab PO SCH (09:00)
[2024-05-01] MEDS ORDERED: Furosemide 10 MG / ML 2ML Vial IV SCH (09:00)
[2024-05-01] MEDS ORDERED: Isosorbide Mononitrate 60 MG TABCR PO SCH (09:00)
[2024-05-01] MEDS ORDERED: Spironolactone 50 MG Tab PO SCH (09:00)
--- NOTE | 2024-05-01 09:05 | NUR ---
HOLDING ON PT'S ORAL MEDS AT THIS TIME, CONTINUE ON BIPAP. WILL READDRESS IN HALF HOUR.
--- NOTE | 2024-05-01 12:50 | NUR ---
Pt. is somnolent. Family are at bedside and welcome my visit. Facilitated a life review and established rapport with family members at bedside. Some pastoral carer is given as info regarding eucharistic services that are offered. Family verbalized gratitude for the spiritual care visit.
[2024-05-01] MEDS ORDERED: OxyCODONE HCL 5 MG TAB PO PRN ×2 (14:45→18:00)
[2024-05-01] MEDS ORDERED: OxyCODONE HCL 5 MG TAB PO ONE (17:35)
--- NOTE | 2024-05-01 18:23 | NUR ---
ALLEN HAS BEEN AWAKE FOR THE MAJORITY OF THE AFTERNOON, CONTINUES ON NC @ 6L, WILL PUT ON BIPAP PRIOR TO BEDTIME PER SUGGESTION. SHE HAS TAKEN IN SOME NUTRITION, ACTUALLY EATING A GRILLED CHEESE SANDWICH BROUGHT IN BY FAMILY. SHE IS TAKING IN WATER, COUGH IS STRONG, BEGINNING TO CLEAR. BLOOD PRESSURE HAS REMAINED STABLE AND NICARDIPINE GTT IS OFF. FAMILY HAS BEEN IN FOR THE MAJORITY OF THE DAY. HEATING PAD ON THE NECK AND NECK PILLOW BROUGHT IN FROM THE FAMILY. HEART RATE REMAINS STABLE <100.
--- NOTE | 2024-05-01 21:30 | NUR ---
PATIENT UPDATE: PATIENT ATTEMPTED BIPAP PER ANCELMO'S REQUEST FOR SLEEP. SHE SAID IT WAS CAUSING HER PAIN TP HER NOSE AND HER HEAD AND NECK FROM THE STRAPS. SHE WAS NOT TOLERATING AND MOVED IT FREQUENTLY. PLACED BACK ON NASAL CANNULA AT 2130. NO SIGNIFICANT CHANGE IN VITAL SIGNS OR PRESENTATION BETWEEN NASAL CANNULA AND BIPAP.
[2024-05-02] VITALS (50 sets, daily range): BP systolic 96–173; BP diastolic 61–155
[2024-05-02 03:47] LABS: Hematocrit 29.9 % (33.0-51.0); Hemoglobin 10.2 g/dL (11.5-16.0); Mean Corpuscular HGB Conc 34.1 g/dL (31.5-36.5); Mean Corpuscular Volume 88 fL (80-100); Mean Platelet Volume 10.7 fL (9.1-12.4); Platelet Count 271 K/mm3 (150-400); RDW Coefficient Variation 13.9 % (11.7-14.2); RDW Standard Deviation 44.9 fL (35.1-46.3); White Blood Cell Count 12.45 K/mm3 (4.00-11.30)
[2024-05-02 04:06] LABS: Albumin, Blood 3.1 g/dL (3.4-5.0); Albumin/Globulin Ratio 0.8 (0.8-1.8); Bilirubin, Total 0.8 mg/dL (0.1-1.0); Bun/Creatinine Ratio 27.4 (12.0-20.0); Calcium, Blood 8.9 mg/dL (8.5-10.1); Creatinine, Blood 0.95 mg/dL (0.40-1.00); Globulin, Blood 4.1 g/dL (2.2-4.0); Magnesium, Blood 1.7 mg/dL (1.6-2.4); Potassium, Blood 3.7 mmol/L (3.5-5.5); Total Protein, Blood 7.2 g/dL (6.4-8.2)
[2024-05-02 04:28] LABS: BAND PERCENT MAN 1 % (0-8); BASOPHILS PERCENT MAN 0 % (0-2); EOSINOPHILS PERCENT MAN 0 % (0-6); LYMPHOCYTES ABSOLUTE MAN 1.36 K/mm3 (0.84-5.20); LYMPHOCYTES PERCENT MAN 11 % (21-46); MONOCYTES ABSOLUTE MAN 0.49 K/mm3 (0.16-1.47); MONOCYTES PERCENT MAN 4 % (4-13); MYELOCYTE ABSOLUTE MAN 0.12 K/mm3 (0.00-0.00); MYELOCYTE PERCENT MAN 1 % (0-0); NEUTROPHILS ABSOLUTE MAN 10.45 K/mm3 (1.96-9.15); SEG NEUTROPHILS PERCENT MAN 83 % (41-73); TOTAL CELLS COUNTED 100
[2024-05-02] MEDS ORDERED: Lidocaine 4% 1 Patch TOP PRN (04:35)
[2024-05-02] MEDS ORDERED: Sodium Phosphate 20 MM in Dextrose 5% 500 ML IV ONE (05:30)
--- NOTE | 2024-05-02 06:42 | NUR ---
SHIFT SUMMARY: NO EVENTS OVERNIGHT. PT HAS BEEN APPROPRIATE AND FOLLOWING COMMANDS. SHE HAS BEEN IN HIGH SPIRITS AND HER GRANDDAUGHTER STAYED THE NIGHT WITH HER. HER HR HAS BEEN 80S-110S AFIB ON THE MONITOR. SHE HAS INFERIOR ST DEPRESSION THAT HAS BEEN ONGOING, OCCASIONAL PVCS. SHE HAS REMAINED NORMOTENSIVE WITHIN PARAMETERS SET BY PROVIDER. PT DID NOT TOLERATE BIPAP, BUT HER SPO2 AND WORK OF BREATHING WERE WNL. SHE DOES DESATURATE QUICKLY IF SHE TAKES THE OXYGEN OFF. NO COMPLAINT OF CHEST PAIN OR SOB. COMPLAINS OF CHRONIC PAIN. URINE OUTPUT HAS BEEN ADEQUATE. PT DID SPEAK WITH HER FAMILY YESTERDAY AND DECIDED TO CHANGE HER CODE STATUS FROM DNI TO FULL CODE.
[2024-05-02] MEDS ORDERED: Sacubitril/Valsartan 49 MG/51 MG Tab PO SCH ×2 (09:00→21:00)
[2024-05-02] MEDS ORDERED: FentaNYL 12 MCG/HR Patch TOP SCH (09:55)
[2024-05-02] MEDS ORDERED: FentaNYL 25 MCG Patch TOP SCH (10:00)
--- NOTE | 2024-05-02 11:27 | NUR ---
Met with pt's son Francis yesterday morning while the patient was sleeping. We discussed the "DNI" (Do not intubate) order the patient had requested. We discusse different scenarios and reasons the DNI wouldn't be appropriate in a code scenario. The pt's son request he talk with the patient about it. Today, noted pt is a Full Code. Will follow up.
--- NOTE | 2024-05-02 13:11 | NUR ---
ALLEN HAS BEEN AWAKE THE MAJORITY OF THE DAY. SHE HAS ONLY DOZED BRIEFLY FOR A FEW MINUTES AT A TIME. SHE HAS TAKEN IN SOME POTATOES THAT THE [employer] BOUGHT DOWNSTAIRS IN THE [place] FOR BREAKFAST. SHE WAS EATING SOME PIZZA THAT THE [employer] BROUGHT HER FOR LUNCH. SHE HAS TAKEN SOME ENSURE. WE HAD REQUESTED A CHOCOLATE ENSURE, WILL TRY WHEN AVAILABLE. REMAINS IN AFIB, RATE <100. SBP <140. SATS REMAIN >95% ON NC, 4L.
[2024-05-02] MEDS ORDERED: Promethazine HCl 12.5 MG Supp PR ONE (18:35)
--- NOTE | 2024-05-02 19:22 | NUR ---
SUMMARY OF LAST HOUR: ALLEN HAS BEEN COUGHING QUITE A BIT THIS AFTERNOON, MAKING IT DIFFICULT FOR HER TO REST. SHE IS COUGHING UP SOME THICK WHITE/YELLOW PHLEGM. EARLIER TODAY WHILE FINISHING HER MEDICATIONS SHE HAD EMESIS WITH PHLEGM. SHE DID NOT THROW UP ANY MEDICATIONS, ONLY FLUIDS. THE SAME HAPPENED THIS EVENING AFTER A COUGHING EPISODE. SHE WAS USING HER KLEENEX, DIDN'T THINK SHE WAS GOING TO GET SICK AND THEN SHE THREW UP. WAS PRESENT, HE ORDERED A ONE TIME DOSE OF PHENERGAN SUPPOSITORY, GIVEN AND PT CLEANED UP. SHE IS A BIT FORGETFUL TONIGHT BUT REMAINS PLEASANT AND COOPERATIVE. REPORT GIVEN TO DEWEY MARTI.
--- NOTE | 2024-05-02 20:14 | NUR ---
ASSSUMPTION OF CARE THIS NURSE ASSUMED CARE AT APPROXIMATELY 1900. THIS NURSE GAVE REPORT TO PCU NURSE AT 2000. PT APPEARED TO BE RESTING IN BED WITHOUT COMPLAINT ON NC WITH FAMILY IN THE ROOM. PT WAS TRANSFERED OUT OF ICU TO PCU AT APPROXIMATELY 2014.
--- NOTE | 2024-05-02 23:21 | NUR ---
PATIENT TRANSFER AT 2018 PT ARRIVED TO ROOM 14 VIA BED FROM ICU,FAMILY BY HER SIDE.PT COMPLAINED OF PAIN WITH MOVEMENT.HEATING PAD APPLIED TO NECK.PLAN OF CARE REVIEWED WITH PT AND FAMILY.PT REPORTS PAIN IN NECK BUT NOT ABLE TO STATE THE INTENSITY USING THE NUMBER SCALE.SEE MAR FOR PRN PAIN MED ADMINISTRATION.DENIES FURTHER NEEDS WILL CONTINUE TO MONITOR.
[2024-05-03 00:30] VITALS: BP 148/89
[2024-05-03 04:06] VITALS: BP 134/86
[2024-05-03 04:09] LABS: BASOPHILS ABSOLUTE AUTO 0.03 K/mm3 (0.00-0.23); BASOPHILS PERCENT AUTO 0 % (0-2); EOSINOPHILS PERCENT AUTO 2 % (0-6); Hematocrit 32.3 % (33.0-51.0); Hemoglobin 10.8 g/dL (11.5-16.0); IMMATURE GRAN ABSOLUTE AUTO 0.13 K/mm3 (0.00-0.10); IMMATURE GRAN PERCENT AUTO 1 % (0-1); LYMPHOCYTES ABSOLUTE AUTO 1.52 K/mm3 (0.84-5.20); LYMPHOCYTES PERCENT AUTO 15 % (21-46); MONOCYTES ABSOLUTE AUTO 1.21 K/mm3 (0.16-1.47); MONOCYTES PERCENT AUTO 12 % (4-13); Mean Corpuscular HGB 29.8 pg (26.0-34.0); Mean Corpuscular HGB Conc 33.4 g/dL (31.5-36.5); Mean Corpuscular Volume 89 fL (80-100); Mean Platelet Volume 10.6 fL (9.1-12.4); NEUTROPHILS ABSOLUTE AUTO 7.06 K/mm3 (1.96-9.15); NEUTROPHILS PERCENT AUTO 70 % (41-73); Platelet Count 329 K/mm3 (150-400); RDW Coefficient Variation 13.8 % (11.7-14.2); RDW Standard Deviation 45.1 fL (35.1-46.3); Red Blood Cell Count 3.62 M/mm3 (3.80-5.20); White Blood Cell Count 10.15 K/mm3 (4.00-11.30)
[2024-05-03 04:28] LABS: Albumin, Blood 2.9 g/dL (3.4-5.0); Anion Gap 12 mmol/L (3-11); Blood Urea Nitrogen 22 mg/dL (8-24); Bun/Creatinine Ratio 22.5 (12.0-20.0); CO2, Blood 31 mmol/L (21-32); Chloride, Blood 92 mmol/L (98-108); Creatinine, Blood 0.98 mg/dL (0.40-1.00); Glomerular Filtration Rate 57 (60-); Glucose, Blood 106 mg/dL (70-99); Potassium, Blood 3.6 mmol/L (3.5-5.5); Sodium, Blood 131 mmol/L (136-145)
--- NOTE | 2024-05-03 06:45 | NUR ---
SHIFT SUMMARY PT SLEPT AFTER RECEIVING PRN OXYCODONE 10MG PO.PT'S DAUGHTER STATES THAT PT HAS NOT SLEPT THAT GOOD IN A WHILE.GIVEN ANOTHER DOSE OF PRN PAIN MED THIS MORNING.PT HAS MAINTAINED OXYGEN SATURATION >95 ON 4L.DENIES SOB,DENIES NEEDS.CALL LIGHT AND PT'S ITEMS WITHIN REACH.WILL REPORT TO INCOMING NURSE.
[2024-05-03 07:39] VITALS: BP 124/78
[2024-05-03] MEDS ORDERED: Potassium Chloride 20 MEQ TabCR PO SCH (08:00)
[2024-05-03] MEDS ORDERED: Furosemide 10 MG/ML 4ML Vial IV SCH (09:00)
[2024-05-03] MEDS ORDERED: Benzonatate 100 MG Cap PO PRN (09:25)
[2024-05-03 15:57] VITALS: BP 103/90
--- NOTE | 2024-05-03 16:50 | NUR ---
SHIFT NOTE: PT ALERT BUT DOES NOT ALWAYS ANSWER QUESTIONS. THIS RN IS UNABLE TO ASSESS ORIENTATION BECAUSE SHE REFUSES TO ANSWER MY QUESTIONS. SHE WAS TRANSFERED TO THE CHAIR THIS AM WITH 2-3P MAX ASSIST. PT FEARFUL AND RESISTANT TO GETTING UP. PT EASILY AGGITATED STATING "YOURE GETTING ON MY LAST NERVE" WHEN STAFF ATTEMPTS TO WORK WITH HER. FAMILY SAID THIS IS A NEW BEHAVIOR. MEDS WERE ATTEMPTED TO BE GIVEN WHOLE IN PUDDING. PT POCKETS PILLS AND THEN SPITS THEM OUT WHEN NURSE IS NOT LOOKING. FAMILY STATES THIS IS NEW WELL. MEDS WERE THEN CRUSHED IN PUDDING. PT REPORTS PAIN IN HER NECK AND BACK. MEDICATED PER MAR WITH LIDOCAINE PATCHES AND PO OXY. FAMILY FREQUENTLY REQUESTS PAIN MEDS FOR PATIENT EVEN WHEN PATIENT IS DENYING DESIRE TO TAKE PAIN MEDS. SHE IS ON TELE IN REMAINS IN AFLUTTER IN THE LOW 100S. HR INCREASES TO 160S WITH EXCERTION. SHE IS INCONTINENT, PUREWICK IN PLACE. NO BM THIS SHIFT. CARE CONTINUES
[2024-05-03 20:09] VITALS: BP 127/84
[2024-05-03 23:42] VITALS: BP 150/88
--- NOTE | 2024-05-04 00:33 | NUR ---
PT TEMP 100.2F, PT REFUSED OFFER OF TYLENOL, 2 BLANKETS REMOVED FROM PT AND TURNED ON FAN, PT SMILED AND SAID OK, GRANDDAUGHTER AT BEDSIDE CALL LIGHT IN REACH
[2024-05-04 03:35] VITALS: BP 145/85
[2024-05-04 06:17] LABS: Anion Gap 12 mmol/L (3-11); Blood Urea Nitrogen 26 mg/dL (8-24); Bun/Creatinine Ratio 24.5 (12.0-20.0); CO2, Blood 30 mmol/L (21-32); Calcium, Blood 9.4 mg/dL (8.5-10.1); Chloride, Blood 93 mmol/L (98-108); Creatinine, Blood 1.06 mg/dL (0.40-1.00); Glomerular Filtration Rate 52 (60-); Glucose, Blood 108 mg/dL (70-99); Phosphorus, Blood 2.9 mg/dL (2.5-4.9); Sodium, Blood 131 mmol/L (136-145)
--- NOTE | 2024-05-04 06:24 | NUR ---
shift summary no acute events this shift, pt awake and alert, refuses to answer orientation questions, closes eyes or just smiles when asked questions, answers yes/no to questions regarding pain, repositioning , or drinks however does give number for pain or location flacc scale used, pt did take scheduled meds and prn pain meds crushed in chocolate pudding. granddaughter at bedside, O2 at 2 lpm nc to keep sat >90%, noted moist cough, purewick in place, turned and repositioned for comfort every 2 hours, side rails up x2 call light in reach
[2024-05-04 08:55] VITALS: BP 171/94
[2024-05-04 14:26] VITALS: BP 105/81
[2024-05-04] MEDS ORDERED: FentaNYL 25 MCG Patch TOP SCH ×2 (16:00→19:00)
[2024-05-04 16:52] VITALS: BP 114/73
--- NOTE | 2024-05-04 18:22 | NUR ---
SHIFT SUMMARY A&O X1-2/ORIENTED TO SELF AND FAMILY AND DID NOT ANSWER THIS RN ABOUT TODAY'S DATE/WHERE SHE IS, PT DOES TAKE A WHILE TO FOLLOW COMMANDS NEEDING PERSISTANT INSTRUCTION, PT BEDREST, DID SIT AT THE SIDE OF THE BED FOR A BIT. CONTINUOUS SPO2, SPO2 GREATER THAN 90% ON RA, LUNGS SOUND DIMMINISHED T/O WITH SOME CRACKLES IN THE BASES, NO SIGNS OF RESPIRITY DISTRESS T/O THIS SHIFT. HR 100 S, PT DENIES CHEST P/P T/O THIS SHIFT, MAP STABLE WITH MAP GREATER THAN 65, SBP ELEVATED/MEDICATED PER ORDERS. PT HAD SOME VOMITING THIS AM WITH HER WATER, NO MEDICATIONS SEEN IN EMEISIS BAG, BOWEL TONES PRESENT IN ALL 4Q. PT HAS PUREWICK IN PLACE TO LOW CONTINUOUS SUCTION. PT DENIES PAIN BUT SHOWS SIGNS OF NON-VERBAL PAIN VIA GRIMISING/GROANS-MEDICATED PER ORDERS. FAMILY AT BEDSIDE T/O THIS SHIFT.
[2024-05-04 20:20] VITALS: BP 129/85
[2024-05-05 00:08] VITALS: BP 116/85
[2024-05-05 04:02] VITALS: BP 128/88
[2024-05-05 05:03] LABS: Albumin, Blood 2.9 g/dL (3.4-5.0); Anion Gap 11 mmol/L (3-11); Blood Urea Nitrogen 31 mg/dL (8-24); CO2, Blood 30 mmol/L (21-32); Calcium, Blood 9.5 mg/dL (8.5-10.1); Chloride, Blood 94 mmol/L (98-108); Creatinine, Blood 1.07 mg/dL (0.40-1.00); Glomerular Filtration Rate 51 (60-); Glucose, Blood 110 mg/dL (70-99); Phosphorus, Blood 3.2 mg/dL (2.5-4.9); Potassium, Blood 4.4 mmol/L (3.5-5.5); Sodium, Blood 131 mmol/L (136-145)
--- NOTE | 2024-05-05 06:09 | NUR ---
SHIFT SUMMARY ASSUMED CARE OF PT AT APPROX 1900. PT A&O TO SELF AND FAMILY BUT CONFUSED TO TIME, PLACE AND SITUATION. VSS AND PT REMAINED ON RA WHILE AWAKE. PT NEEDED 2L NC WHILE SLEEPING. PT WAS ABLE TO TAKE MEDS WITH PUDDING ONE AT A TIME BUT WOULD STILL POCKET SOME. FAMILY AT BEDSIDE WAS ABLE TO ASSIST WITH TURNS AND ATTEND CHANGES. PT ON PUREWICK OVERNIGHT WITH LITTLE OUTPUT (200mL) AND A WET DIAPER CHANGE. FENTNYL PATCH REPLACED, AND PT DID NOT COMPLAIN OF AY OTHER PAIN OVERNIGHT. PT DENIES SOB, CP/PRESSURE. BED IN LOWEST POSITION AND CALL LIGHT WITHIN REACH.
[2024-05-05 08:57] VITALS: BP 137/94
[2024-05-05] MEDS ORDERED: Furosemide 20 MG Tab PO SCH (09:00)
[2024-05-05] MEDS ORDERED: Aspirin 81 MG TabEC PO SCH (09:00)
[2024-05-05] MEDS ORDERED: Apixaban 5 MG Tab PO SCH (10:00)
[2024-05-05] MEDS ORDERED: FentaNYL 12 MCG/HR Patch TOP SCH (12:40)
[2024-05-05] MEDS ORDERED: OxyCODONE HCL 5 MG TAB PO PRN (12:40)
[2024-05-05 17:12] VITALS: BP 121/87
--- NOTE | 2024-05-05 18:49 | NUR ---
SHIFT SUMMARY A&O X1-2/ORIENTED TO SELF, FAMILY, PT STATE SHE WAS IN EMMET AND IN THE MEDICAL ROOM, PT DOES TAKE A WHILE TO FOLLOW COMMANDS NEEDING PERSISTANT INSTRUCTION, PT ABLE TO AMBULATE 2 PERSON WITH FWW AND GAIT BELT TO CHAIR/BSC. CONTINUOUS SPO2, SPO2 GREATER THAN 90% ON RA, LUNGS SOUND DIMMINISHED T/O WITH SOME CRACKLES IN THE BASES, NO SIGNS OF RESPIRITY DISTRESS T/O THIS SHIFT, PT HAVING PERSISTANT OCCASIONAL COUGH WITH MINIMAL SPUTUM PRODUCTION. HR 100 S, PT DENIES CHEST P/P T/O THIS SHIFT, MAP STABLE WITH MAP GREATER THAN 65. PT HAD SOME NAUSEA THIS AM WITH HER MEDICATIONS. BOWEL TONES PRESENT IN ALL 4Q, PT HAD A BM THIS SHIFT. PT HAS PUREWICK IN PLACE TO LOW CONTINUOUS SUCTION, URINE JOEY IN COLOR. PT HAS CHRONIC BACK PAIN, PT REPORTED SOME DISCOMFORT THIS AFTERNOON BUT DENIED THE NEED FOR ORAL PAIN MEDICATION. TWO PILLS FOUND IN PATIENT BED A COUPLE HOURS AFTER MORNING MEDICATION PASS. DR. MATHIAS ROUNDED ON PT THIS SHIFT, NEW ORDERS PLACED. RN FROM THE [facility] CAME TO SEE PT THIS SHIFT
[2024-05-05 20:38] VITALS: BP 122/85
[2024-05-05] MEDS ORDERED: Gabapentin 300 MG Cap PO SCH (21:00)
[2024-05-05 23:09] VITALS: BP 126/87
[2024-05-06 02:27] VITALS: BP 125/87
--- NOTE | 2024-05-06 04:01 | NUR ---
SHIFT SUMMARY 84 YR F TRANSFERED TO MEDICAL UNIT FROM PCU THIS SHIFT. FULL CODE. NO ACUTE CHANGES SINCE TRANSFER. PT GRANDDAUGHTER PRESENT WHEN PT ARRIVED TO MEDICAL UNIT BUT WENT HOME SHORTLY AFTER. PT HAS SLEPT FOR MOST OF THIS SHIFT. NO C/O PAIN OR DISCOMFORT. PT IS CURRENTLY ON 2L O2 NC FOR NOC. PUREWIK IN PLACE AND WORKING WELL. BED IN LOW POSITION WITH ALARM ON AND CALL LIGHT IN REACH. WILL CONTINUE TO MONITOR.
[2024-05-06 07:49] VITALS: BP 112/82
[2024-05-06] MEDS ORDERED: DULoxetine HCL 30 MG Cap DR PO SCH (09:00)
[2024-05-06 09:06] LABS: Source, Urine Clean Catch
[2024-05-06 09:09] LABS: Appearance, Urine Cloudy (Clear); Bilirubin, Urine Neg (Neg); Blood, Urine 2+ (Neg); Color, Urine Yellow (P-Yellow); Glucose Qualitative, Urine Neg (Neg); Ketones, Urine Neg (Neg); Leukocyte Esterase, Urine 3+ (Neg); Nitrite, Urine Neg (Neg); Protein, Urine 3+ (Neg); Urobilinogen, Urine NORM (Normal)
[2024-05-06 09:37] LABS: Bacteria Many /hpf; Squamous Epithelial Cells Few /hpf (Few)
[2024-05-06 14:53] VITALS: BP 105/78
--- NOTE | 2024-05-06 17:53 | NUR ---
SHIFT SUMMARY PT A&OX3, VSS, AMB W/ 1-2P ASSIST, TOLERATING PO, VOIDING, AND DENIED PAIN. PT WAS UP IN THE CHAIR T/O SHIFT AND WAS ENCOURAGED TO USE THE BSC. PUREWICK WAS REMOVED. PT'S FAMILY STATED THAT THE PT'S MENTATION IMPROVED FROM YESTERDAY. PT NOT CONFUSED THIS SHIFT AND CALLED APPROPRIATELY. NO OTHER ACUTE CHANGES. CALL LIGHT WITHIN REACH AND BED ALARM ON FOR SAFETY.
[2024-05-06 19:43] VITALS: BP 124/76
[2024-05-07 04:27] VITALS: BP 130/82
--- NOTE | 2024-05-07 04:38 | NUR ---
SHIFT SUMMARY 84 YR F TRANSFERED FROM PCU TO MEDICAL UNIT ON 05/05/24. FULL CODE. NO ACUTE CHANGES THIS SHIFT. PT HAS SLEPT FOR MOST OF THIS SHIFT BUT WAS UP TO BSC W/ 1 ASSIST AND FWW. SHE IS ALERT AND ORIENTED. SHE CONTINUES TO USE 2 L O2 BY NC STATING THAT IT MAKES HER FEEL MORE COMFORTABLE TO USE THE OXYGEN. NO CHANGES TO REPORT. BED IN LOW POSITION AND CALL LIGHT IN REACH. WILL CONTINUE TO MONITOR.
[2024-05-07 06:36] LABS: BASOPHILS ABSOLUTE AUTO 0.03 K/mm3 (0.00-0.23); BASOPHILS PERCENT AUTO 0 % (0-2); EOSINOPHILS ABSOLUTE AUTO 0.18 K/mm3 (0.00-0.68); EOSINOPHILS PERCENT AUTO 2 % (0-6); Hematocrit 29.9 % (33.0-51.0); Hemoglobin 10.1 g/dL (11.5-16.0); IMMATURE GRAN ABSOLUTE AUTO 0.15 K/mm3 (0.00-0.10); IMMATURE GRAN PERCENT AUTO 2 % (0-1); LYMPHOCYTES ABSOLUTE AUTO 1.61 K/mm3 (0.84-5.20); LYMPHOCYTES PERCENT AUTO 18 % (21-46); MONOCYTES ABSOLUTE AUTO 1.04 K/mm3 (0.16-1.47); MONOCYTES PERCENT AUTO 11 % (4-13); Mean Corpuscular HGB Conc 33.8 g/dL (31.5-36.5); Mean Corpuscular Volume 89 fL (80-100); Mean Platelet Volume 10.8 fL (9.1-12.4); NEUTROPHILS ABSOLUTE AUTO 6.18 K/mm3 (1.96-9.15); NEUTROPHILS PERCENT AUTO 67 % (41-73); Platelet Count 419 K/mm3 (150-400); RDW Coefficient Variation 13.6 % (11.7-14.2); RDW Standard Deviation 44.5 fL (35.1-46.3); Red Blood Cell Count 3.37 M/mm3 (3.80-5.20); White Blood Cell Count 9.19 K/mm3 (4.00-11.30)
[2024-05-07 06:53] LABS: Albumin, Blood 2.7 g/dL (3.4-5.0); Albumin/Globulin Ratio 0.6 (0.8-1.8); Bilirubin, Total 0.5 mg/dL (0.1-1.0); Bun/Creatinine Ratio 44.1 (12.0-20.0); Calcium, Blood 9.4 mg/dL (8.5-10.1); Creatinine, Blood 0.95 mg/dL (0.40-1.00); Globulin, Blood 4.9 g/dL (2.2-4.0); Potassium, Blood 5.4 mmol/L (3.5-5.5); Total Protein, Blood 7.6 g/dL (6.4-8.2)
[2024-05-07 07:49] VITALS: BP 116/95
[2024-05-07] MEDS ORDERED: Cephalexin Monohydrate 500 MG Cap PO SCH (13:00)
[2024-05-07 16:04] VITALS: BP 132/110
[2024-05-07 19:47] VITALS: BP 108/91
--- NOTE | 2024-05-07 20:47 | NUR ---
END OF SHIFT SUMMARY: A&Ox3-4. PLEASANT AND COOPERATIVE WITH CARE. CALLS APPROPRIATELY AND IS ABLE TO ADVOCATE NEEDS EFFECTIVELY. CONTINENT OF URINE c URGE/OVERFLOW INCONTINENCE. NOTED TO BE POSITIVE FOR UTI AND STARTED ABx KEFLEX TODAY Tx UTI. CONTINENT OF BOWEL. LBM 05/06/24. MEDS WHOLE c FLUIDS. POWERGLIDE FLUSHES AND DRAWS; DRESSING CHANGED TODAY. TESSALON PERLES ADMINISTERED PRN COUGH x2, PAIN MEDS ADMINSITERED x2. FAMILY IN TO VISIT. BED IN LOWEST POSITION, CALL LIGHT WITHIN REACH, ALL NEEDS MET. REPORT TO ONCOMING NURSE.
[2024-05-08 03:04] VITALS: BP 117/77
--- NOTE | 2024-05-08 05:10 | NUR ---
SHIFT SUMMARY 84 YR F ADMITTED ON 04/26/24. FULL CODE. NO ACUTE CHANGES THIS SHIFT. PT APPEARS TO BE MORE A&O THAN SHE HAS BEEN FOR THE LAST 2 NOC SHIFTS. SHE IS GETTING UP TO THE BSC BUT STILL FORGETS TO CALL FOR ASSISTANCE. BED ALARM IS ON AND PT IS RECEPTIVE TO ASSISTANCE WHEN IT IS OFFERED. SHE APPEARS TO HAVE SLEPT COMFORTABLY FOR MOST OF THE NIGHT. NO C/O PAIN OR DISCOMFORT THIS SHIFT. BED IN LOW POSITION WITH ALARM ON AND CALL LIGHT IN REACH. WILL CONTINUE TO MONITOR.
[2024-05-08 07:21] VITALS: BP 127/78
--- NOTE | 2024-05-08 09:40 | NUR ---
ASSUMED CARE OF PATIENT AT SHIFT CHANGE; SLEEPING DURING SHIFT CHANGE REPORT. NO ACUTE NEEDS. WORKED WITH PT LATER THIS MORNING AFTER BREAKFAST AND IS CURRENTLY UP-TO-CHAIR, WATCHING TV. HEARD COUGHING AND ADMINISTERED TESSALON PERLE. FENTANYL PATCH DUE TODAY; NEW PLACED ON LEFT SHOULDER. UNABLE TO FIND PREVIOUS PATCH AND PT UNSURE OF WHERE IT WAS PLACED.
[2024-05-08 15:46] VITALS: BP 98/64
[2024-05-08 15:48] VITALS: BP 101/81
--- NOTE | 2024-05-08 19:33 | NUR ---
A&Ox4 WITH EPISODIC FORGETFULNESS; EASILY REDIRECTED. PLEASANT AND COOPERATIVE WITH CARE. DID WORK WITH PT AND OT AND MOBILIZE INTO CHAIR BUT INSISTED ON GOING BACK TO BED LATER. SBA c FWW & GB TO BSC AND RECLINER. ANTICIPATE DC BACK [facility] T[facility] IF EMIL,, RN WITH [facility], DEEMS APPROPRIATE. MEDS WHOLE WITH FLUIDS. PERSISTENT COUGH; PRN BENZONOTATE ADMINISTERED x2. PLEASANT AND COOPERATIVE WITH CARE. CALLS APPROPRIATELY AND IS ABLE TO ADVOCATE NEEDS EFFECTIVELY. NEW FENTANYL PATCH PLACED POSTERIOR LEFT SHOULDER; UNABLE TO LOCATE PREVIOUS FENTANYL PATCH. PT UNSURE OF WHERE IT WAS PLACED. DAUGHTER AND SON BOTH AT BEDSIDE TO VISIT TODAY. BED IN LOWEST POSITION, CALL LIGHT WITHIN REACH, ALL NEEDS MET. REPORT TO ONCOMING NURSE.
[2024-05-08 21:40] VITALS: BP 130/96
[2024-05-09 03:56] VITALS: BP 120/88
[2024-05-09 05:22] LABS: BASOPHILS ABSOLUTE AUTO 0.04 K/mm3 (0.00-0.23); BASOPHILS PERCENT AUTO 1 % (0-2); EOSINOPHILS PERCENT AUTO 3 % (0-6); IMMATURE GRAN ABSOLUTE AUTO 0.16 K/mm3 (0.00-0.10); IMMATURE GRAN PERCENT AUTO 3 % (0-1); LYMPHOCYTES ABSOLUTE AUTO 1.51 K/mm3 (0.84-5.20); LYMPHOCYTES PERCENT AUTO 23 % (21-46); MONOCYTES ABSOLUTE AUTO 0.73 K/mm3 (0.16-1.47); MONOCYTES PERCENT AUTO 11 % (4-13); Mean Corpuscular HGB 29.4 pg (26.0-34.0); Mean Corpuscular HGB Conc 33.3 g/dL (31.5-36.5); Mean Corpuscular Volume 88 fL (80-100); Mean Platelet Volume 10.8 fL (9.1-12.4); NEUTROPHILS ABSOLUTE AUTO 3.88 K/mm3 (1.96-9.15); NEUTROPHILS PERCENT AUTO 59 % (41-73); Platelet Count 478 K/mm3 (150-400); RDW Coefficient Variation 13.7 % (11.7-14.2); RDW Standard Deviation 44.1 fL (35.1-46.3); Red Blood Cell Count 3.06 M/mm3 (3.80-5.20); White Blood Cell Count 6.52 K/mm3 (4.00-11.30)
--- NOTE | 2024-05-09 05:39 | NUR ---
SHIFT SUMMARY PT A&O X4, FORGETFUL AND IMPULSIVE AT TIMES. PT UP TO BATHROOM WITH FWW AND SBA MULTIPLE TIMES THROUGH THE NIGHT. SLEPT LONG INTERVALS. OCC NONPRODUCTIVE COUGH. PT REMAINS ON RA DURING THE NIGHT WITH O2 SATS >95%. BED IN LOWEST POSITION, CALL LIGHT WITHIN REACH, SIDERAILS UP X2, BED ALARM ON.
[2024-05-09 06:10] LABS: Albumin, Blood 2.8 g/dL (3.4-5.0); Albumin/Globulin Ratio 0.6 (0.8-1.8); Bilirubin, Total 0.5 mg/dL (0.1-1.0); Bun/Creatinine Ratio 33.3 (12.0-20.0); Calcium, Blood 9.2 mg/dL (8.5-10.1); Creatinine, Blood 1.17 mg/dL (0.40-1.00); Globulin, Blood 4.5 g/dL (2.2-4.0); Total Protein, Blood 7.3 g/dL (6.4-8.2)
--- NOTE | 2024-05-09 09:44 | NUR ---
ASSUMED CARE OF PATIENT. PATIENT SLEEPING DURING SHIFT CHANGE REPORT. PT/OT ATTEMPTED TO SEE; PATIENT DISCHARGING BACK TO [facility]. EMIL, RN WITH [facility], CAME TO SEE AND REEVALUATE PATIENT LAST NIGHT AND AGREES TO ACCEPTANCE BACK TO [facility]. REQUESTS MED REC AND DISCHARGE SUMMARY BE FAXED TO HER AND [facility]. EMIL PHONE: [phone] FAX: [phone]
[2024-05-09 09:52] VITALS: BP 96/68
[2024-05-09] MEDS ORDERED: ELIQUIS2.5 MG PO (13:56)
[2024-05-09] MEDS ORDERED: CEPH500 PO (14:02)
[2024-05-09] MEDS ORDERED: BENZ100A PO (14:02)
[2024-05-09] MEDS ORDERED: ASPI81CH PO (14:02)
[2024-05-09] MEDS ORDERED: GABA300 PO (14:03)
[2024-05-09] MEDS ORDERED: IPRAT-ALBUT 0.5-3 ML INH (14:04)
--- NOTE | 2024-05-09 16:06 | NUR ---
DISCHARGE SUMMARY: A&Ox4. PLEASANT AND COOPERATIVE WITH CARE. CALLS APPROPRIATELY AND IS ABLE TO ADVOCATE NEEDS EFFECTIVELY. 1PA c FWW & GB. CONTINENT OF BOWEL AND BLADDER c EPISODIC URGE/OVERFLOW URINARY INCONTINENCE. LBM TODAY. MEDS WHOLE WITH FLUIDS. PAIN BETTER CONTROLLED TODAY. CONTINUES c C/O COUGH FOR WHICH SHE WAS GIVEN PRN TESSALON PERLES. MEDICATIONS FAXED TO [facility]. LEFT FLOOR WITH ALL BELONGINGS AND DISCHARGE PACKET ESCORTED BY SON AND DAUGHTER WHO ARE PROVIDING TRANSPORTATION BACK TO [facility]. DEWEY moe [facility] AWARE OF RETURN.
== END 2024-05-09 15:20 | disposition home health service (06) | DRG 208 ==
LOC: ER 15:25 → ERHOLD 15:26 → ICUE 15:26 → PCU 15:26 → ICUE 04-27 03:15 → PCU 05-02 20:15 → MEDS 05-05 22:58 → ENPENDDIS 05-09 13:29 → MEDS 05-09 15:20
PROVIDERS: Emergency Medicine; Family Medicine; Internal Medicine; Internal Medicine Critical Care Medicine; Nurse Practitioner Acute Care; ADMIT Internal Medicine
PROC: 5A09357 Assistance with Respiratory Ventilation, Less than 24 Consecutive Hours, Continuous Positive Airway Pressure (ICD-10-PCS; principal; 2024-04-26)
PROC: 5A1945Z Respiratory Ventilation, 24-96 Consecutive Hours (ICD-10-PCS; 2024-04-27)
PROC: 0BH17EZ Insertion of Endotracheal Airway into Trachea, Via Natural or Artificial Opening (ICD-10-PCS; 2024-04-27)
DX: J10.01 Influenza due to other identified influenza virus with the same other identified influenza virus pneumonia (principal); I50.23 Acute on chronic systolic (congestive) heart failure; J96.01 Acute respiratory failure with hypoxia; J96.02 Acute respiratory failure with hypercapnia; I24.89 Other forms of acute ischemic heart disease; F05 Delirium due to known physiological condition; N17.9 Acute kidney failure, unspecified; I16.1 Hypertensive emergency; I42.9 Cardiomyopathy, unspecified; Z66 Do not resuscitate; G89.4 Chronic pain syndrome; J44.9 Chronic obstructive pulmonary disease, unspecified; I48.91 Unspecified atrial fibrillation; I11.0 Hypertensive heart disease with heart failure; I25.10 Atherosclerotic heart disease of native coronary artery without angina pectoris; E86.0 Dehydration; M06.9 Rheumatoid arthritis, unspecified; K21.9 Gastro-esophageal reflux disease without esophagitis; E87.6 Hypokalemia; I16.0 Hypertensive urgency; F03.90 Unspecified dementia, unspecified severity, without behavioral disturbance, psychotic disturbance, mood disturbance, and anxiety; Z95.5 Presence of coronary angioplasty implant and graft; Z92.3 Personal history of irradiation; Z79.02 Long term (current) use of antithrombotics/antiplatelets; Z79.51 Long term (current) use of inhaled steroids; Z87.891 Personal history of nicotine dependence; Z96.641 Presence of right artificial hip joint
CPT/HCPCS: 31500; 36415; 71045; 80048; 80053; 80069; 80162; 81001; 82803; 82947; 83605; 83735; 83880; 84100; 84443; 84484; 85014; 85018; 85025; 85027; 85049; 85520; 85610; 85730; 87077; 87086; 87186; 87428-QW; 92526; 92610; 93005; 93010; 93306; 94002; 94003; 94640; 94660; 94664; 94760; 94762; 97110; 97116; 97161; 97166; 97530; 97535; 99285-25; A9270; C1751; J1160; J1644; J1940; J2060; J2405; J2470; J2704; J3010; J3480; J7050; J7060; J7070

== ENCOUNTER → 2024-05-21 | Outpatient (CLI) | payer OTHER ==
[~2024-05-21] MED LIST changes: +ALBU90OI INH; +ASPI81CH PO; +Acetaminophen325 M1 PO; +BENZ100A PO; +CEPH500 PO; +ELIQUIS2.5 MG PO; -Etomidate 2MG / ML 10ML Vial IV ONE; +GABA300 PO; +IPRAT-ALBUT 0.5-3 ML INH; -LORazepam 2 MG/ML 1ML Injection IV ONE; -Rocuronium Bromide 10 MG/ML 5ML Injection IV ONE
[2024-05-21 18:03] LABS: Source, Urine Voided
[2024-05-21 18:47] LABS: Bilirubin, Urine Neg (Neg); Blood, Urine Neg (Neg); Color, Urine Yellow (P-Yellow); Glucose Qualitative, Urine Neg (Neg); Ketones, Urine Neg (Neg); Leukocyte Esterase, Urine 2+ (Neg); Nitrite, Urine Neg (Neg); Protein, Urine 1+ (Neg); Urobilinogen, Urine NORM (Normal)
[2024-05-21 18:59] LABS: Appearance, Urine Hazy (Clear)
[2024-05-21 19:01] LABS: Bacteria Mod /hpf; Mucus Light (0-Heavy); Red Blood Cells, Urine 0-2 /hpf (0-2); Squamous Epithelial Cells Few /hpf (Few); Transitional Epithelial Cells Rare /hpf (0-Rare)
== END ==
LOC: LAB 18:00 → LAB SHORT 18:00
PROVIDERS: Family Medicine
DX: N39.0 Urinary tract infection, site not specified (principal)
CPT/HCPCS: 81001; 87086

== ENCOUNTER → 2024-06-01 | Outpatient (CLI) | payer OTHER | LOC: LAB SHORT 18:05 → LAB 18:05 | DX: R30.0 Dysuria (principal) | CPT/HCPCS: 87077; 87086; 87186 ==

== ENCOUNTER 2024-06-10 12:50 | Inpatient (IN) | payer OTHER ==
[~2024-06-10] VITALS: Ht 157.5 cm; Wt 50.1 kg
[2024-06-10 13:27] LABS: BASOPHILS ABSOLUTE AUTO 0.02 K/mm3 (0.00-0.23); BASOPHILS PERCENT AUTO 0 % (0-2); EOSINOPHILS ABSOLUTE AUTO 0.15 K/mm3 (0.00-0.68); EOSINOPHILS PERCENT AUTO 2 % (0-6); Hematocrit 25.6 % (33.0-51.0); Hemoglobin 8.9 g/dL (11.5-16.0); IMMATURE GRAN ABSOLUTE AUTO 0.02 K/mm3 (0.00-0.10); IMMATURE GRAN PERCENT AUTO 0 % (0-1); LYMPHOCYTES ABSOLUTE AUTO 0.78 K/mm3 (0.84-5.20); LYMPHOCYTES PERCENT AUTO 11 % (21-46); MONOCYTES ABSOLUTE AUTO 0.61 K/mm3 (0.16-1.47); MONOCYTES PERCENT AUTO 8 % (4-13); Mean Corpuscular HGB 31.9 pg (26.0-34.0); Mean Corpuscular HGB Conc 34.8 g/dL (31.5-36.5); Mean Corpuscular Volume 92 fL (80-100); Mean Platelet Volume 10.7 fL (9.1-12.4); NEUTROPHILS ABSOLUTE AUTO 5.67 K/mm3 (1.96-9.15); NEUTROPHILS PERCENT AUTO 78 % (41-73); Platelet Count 346 K/mm3 (150-400); RDW Coefficient Variation 16.6 % (11.7-14.2); RDW Standard Deviation 56.3 fL (35.1-46.3); Red Blood Cell Count 2.79 M/mm3 (3.80-5.20); White Blood Cell Count 7.25 K/mm3 (4.00-11.30)
[2024-06-10 14:07] LABS: Albumin, Blood 3.7 g/dL (3.4-5.0); Albumin/Globulin Ratio 1.1 (0.8-1.8); Bilirubin, Total 0.8 mg/dL (0.1-1.0); Bun/Creatinine Ratio 17.6 (12.0-20.0); Calcium, Blood 9.2 mg/dL (8.5-10.1); Creatinine, Blood 0.97 mg/dL (0.40-1.00); Globulin, Blood 3.5 g/dL (2.2-4.0); Potassium, Blood 4.5 mmol/L (3.5-5.5); Total Protein, Blood 7.2 g/dL (6.4-8.2)
[2024-06-10 15:47] LABS: Source, Urine Clean Catch
[2024-06-10] MEDS ORDERED: Ondansetron HCl 2 MG / ML 2ML Vial IV ONE (15:50)
[2024-06-10 16:04] LABS: Appearance, Urine Clear (Clear); Bilirubin, Urine Neg (Neg); Blood, Urine 1+ (Neg); Color, Urine Yellow (P-Yellow); Glucose Qualitative, Urine Neg (Neg); Ketones, Urine Neg (Neg); Leukocyte Esterase, Urine Neg (Neg); Nitrite, Urine Neg (Neg); Protein, Urine 1+ (Neg); Urobilinogen, Urine NORM (Normal); pH, Urine 6.5 (5.0-8.0)
[2024-06-10 16:24] LABS: White Blood Cells, Urine 0-2 /hpf (0-5)
[2024-06-10 16:25] LABS: Bacteria Rare /hpf; Squamous Epithelial Cells Not Seen /hpf (Few)
[2024-06-10] MEDS ORDERED: NS 1,000 ML IV SCH ×2 (16:45→18:50)
[2024-06-10] MEDS ORDERED: CefTRIAXone Sodium 1,000 MG in NS 100 ML IV SCH (18:38)
[2024-06-10] MEDS ORDERED: Bisacodyl 10 MG Supp PR PRN (18:40)
[2024-06-10] MEDS ORDERED: Ondansetron 4 MG TAB PO PRN (18:45)
[2024-06-10] MEDS ORDERED: Ondansetron HCl 2 MG / ML 2ML Vial IV PRN (18:45)
[2024-06-10] MEDS ORDERED: Magnesium Hydroxide Conc 10 ML UDC PO PRN (18:45)
[2024-06-10 18:50] LABS: CORONAVIRUS COVID-19 AG Negative (NEGATIVE); INFLUENZA A AG Negative (NEGATIVE); INFLUENZA B AG Negative (NEGATIVE)
[2024-06-10] MEDS ORDERED: OxyCODONE HCL 5 MG TAB PO PRN (18:50)
[2024-06-10] MEDS ORDERED: FLU VACC TS2024-25(6MOS UP)/PF 45 MCG/0.5 ML SYRINGE IM ONE (19:58)
[2024-06-10] MEDS ORDERED: Famotidine 10 MG/ML 2ML Vial IV SCH (21:00)
[2024-06-10] MEDS ORDERED: Apixaban 5 MG Tab PO SCH (21:00)
[2024-06-10] MEDS ORDERED: Docusate Sodium 100 MG Cap PO SCH (22:00)
[2024-06-10 22:35] VITALS: BP 167/107
[2024-06-10] MEDS ORDERED: Prochlorperazine Edisylate 10 mg Vial IV PRN (23:15)
[2024-06-10] MEDS ORDERED: Promethazine HCl 25 MG Tab PO PRN (23:15)
[2024-06-11] VITALS (19 sets, daily range): BP systolic 107–185; BP diastolic 66–127
[2024-06-11] MEDS ORDERED: Metoprolol Tartrate 1 MG/ML 5 ML VIAL IV ONE (02:35)
[2024-06-11] MEDS ORDERED: Furosemide 10 MG/ML 4ML Vial ONE (02:36)
[2024-06-11] MEDS ORDERED: Furosemide 10 MG/ML 4ML Vial IV ONE (02:40)
[2024-06-11] MEDS ORDERED: HydrALAZINE HCl 20 MG / ML 1ML Vial IV ONE (02:45)
[2024-06-11] MEDS ORDERED: LORazepam 2 MG/ML 1ML Injection IV ONE (02:45)
[2024-06-11 03:51] LABS: Base Excess Venous -2.7 mmol/L; Bicarbonate Venous 21.7 mmol/L (24.0-30.0); PCO2 Venous 47.1 mmHg (38-42); pH Blood Venous 7.31 (7.34-7.37)
[2024-06-11 03:57] LABS: BASOPHILS ABSOLUTE AUTO 0.02 K/mm3 (0.00-0.23); BASOPHILS PERCENT AUTO 0 % (0-2); EOSINOPHILS ABSOLUTE AUTO 0.13 K/mm3 (0.00-0.68); EOSINOPHILS PERCENT AUTO 2 % (0-6); Hematocrit 30.4 % (33.0-51.0); Hemoglobin 9.8 g/dL (11.5-16.0); IMMATURE GRAN ABSOLUTE AUTO 0.02 K/mm3 (0.00-0.10); IMMATURE GRAN PERCENT AUTO 0 % (0-1); LYMPHOCYTES ABSOLUTE AUTO 0.97 K/mm3 (0.84-5.20); LYMPHOCYTES PERCENT AUTO 13 % (21-46); MONOCYTES ABSOLUTE AUTO 0.58 K/mm3 (0.16-1.47); MONOCYTES PERCENT AUTO 8 % (4-13); Mean Corpuscular HGB 30.8 pg (26.0-34.0); Mean Corpuscular HGB Conc 32.2 g/dL (31.5-36.5); Mean Corpuscular Volume 96 fL (80-100); Mean Platelet Volume 10.1 fL (9.1-12.4); NEUTROPHILS ABSOLUTE AUTO 6.03 K/mm3 (1.96-9.15); NEUTROPHILS PERCENT AUTO 78 % (41-73); Platelet Count 321 K/mm3 (150-400); RDW Coefficient Variation 16.6 % (11.7-14.2); RDW Standard Deviation 58.7 fL (35.1-46.3); Red Blood Cell Count 3.18 M/mm3 (3.80-5.20); White Blood Cell Count 7.75 K/mm3 (4.00-11.30)
[2024-06-11 04:20] LABS: Albumin, Blood 3.7 g/dL (3.4-5.0); Albumin/Globulin Ratio 0.9 (0.8-1.8); Bilirubin, Total 0.8 mg/dL (0.1-1.0); Bun/Creatinine Ratio 13.1 (12.0-20.0); Calcium, Blood 9.4 mg/dL (8.5-10.1); Creatinine, Blood 0.84 mg/dL (0.40-1.00); Total Protein, Blood 7.7 g/dL (6.4-8.2)
--- NOTE | 2024-06-11 04:20 | NUR ---
[facility] PRIMARY RN NOTIFIED THIS RN OF PT'S UNEVEN PUPILS. RIGHT PUPIL NOTED TO BE REACTIVE AND NORMAL IN SHAPE, BUT LEFT PUPIL NOTED TO NOT BE REACTIVE AND IRREGULARLY SHAPED. PT SLEEPY, ROUSABLE TO MILD STERNAL RUB, OPENING EYES AND MOVING ALL FOUR LIMBS ALTHOUGH WEAKLY. SPEECH IS GARBLED, BUT NO FACIAL DROOP NOTED. DR LOUIE NOTIFIED WITH PROVIDER TO COME TO THE BEDSIDE WHEN ABLE. AWAITING MD ARRIVAL.
--- NOTE | 2024-06-11 04:29 | NUR ---
NEW ER ADMIT @ 2230, BP ELEVATED & PT NAUSEAUS & VOMITING, ANTIMETIC ADMIN X2; PT A&OX1, SON STAYED TO ASSIST W/ADMIT, AFTER HE WENT HOME PT SEEMED TO BECOME ANXIOUS, C/O GENERAL DISCOMFORT IN HOSP BED, WORKED TO MAKE PT MORE COMFORTABLE THEN SHE BEGAN TO C/O SOB, MILD AT FIRST; SPO2=98% ON RA, PT WAS BOOSTED AND LUNGS REASSESSED. THIS RN STOPPED IV FLUIDS AND REACHED OUT TO DR MATHIAS WHEN PT CONTINUED TO C/O SOB. SUPERVISOR [employer] WAS CALLED (@0225) PTS HR ALSO BEGAN TO INCREASE UP TO 170'S-180'S. PT XFER'D TO PCU13 @ 0310, LEFT MESSAGE ON SONS (LIBRADO) VOICEMAIL ALERTING HIM OF CHANGES. BEDSIDE REPORT GIVEN TO PCU NURSE.
--- NOTE | 2024-06-11 05:28 | NUR ---
ASSUMPTION OF CARE @ APPROX 0320 PT ARRIVED TO PCU 13, WAS SLID OVER BY MEDICAL STAFF TO PCU BED, BED SIDE REPORT WAS RECIVED BY THIS RN BY CHETAN AMIN RN/ SHE ALSO STATED SHE WILL BE UPDATING PT SON THAT SHE HAS BEEN MOVED TO PCU. PT ATTEMPTING TO PULL OFF BIPAP, MOVING ALL EXTREMITIES, PT NOT ANSWERING ORIENTATION QUESTIONS, NOT FOLLOWING COMMANDS. DURING CORTÉS PLACEMENT PT WAS YELLING AT STAFF TO "QUIT IT" SWATTING HER HANDS AT STAFF/ BLADDER VISIBLELY DISTENDED. DURRING THIS RN'S ASSESSMENT PT BECAME INCREASINGLY MORE LETHARGIC, NOT PULLING AWAY FROM NAIL BED PRESS, NO LONGER PULLING AT BIPAP, ONLY OPENING EYES FOR STERNAL RUN, PUPILS WERE NOTED TO BE UNEQUAL/ THE LEFT BEING OBLONG AND UNREACTIVE TO LIGHT/ THE RIGHT BEING A PIN POINT AND SLUGGISH TO LIGHT/ MEDICAL FLOOR RN THAT REPORT WAS RECIVED FROM NOTED THAT THE PTS PUPILS WERE EQUAL DURING HER ASSEMENT, CHARGE NURSE NOTIFED AND CHARGE NURSE NOTIFED MD. CONTINOUS SPO2, SPO2 GREATER THAN 90% ON BIPAP 14/7/35%, RIGHT UPPER LOBES COARSE CRACKLES, RIGHT LOWER LOBES SOUND COARSE CRACKLES, LEFT UPPER LOBES SOUND COARSE CRACKLES, LEFT LOWER LOBES SOUND COARSE CRACKLES AND A WHEEZE. LUNG SOUNDS HAVE IMPROVED T/O SOUNDING LESS WET @ 0500 CONTINOUS TELE MONITORING, HR 90'S, AFIB WITH INVERTED T WAVES, BLANK CHEST P/P DUE TO PT ALTERED MENTAL STATUS, SBP 180-100'S, MAP GREATER THAN 65, FAINT PULSES PRESENT T/O. HYPOACTIVE BOWEL TONES PRESENT IN ALL 4Q. CORTÉS CATH PLACED THIS SHIFT, CORTÉS IS PATENT/SECURE/DRAINING TO GRAVITY, URINE PALE ALMOST CLEAR. SMALL SCABS NOTED TO PT LOWER BACK, NO REDNESS TO BONY PROMINENCES. MD TO BEDSIDE @ 0452 AND ASSESSED PT, PT THEN WAS TAKEN TO CT OF THE HEAD WITH THIS RN.
[2024-06-11] MEDS ORDERED: Metoprolol Tartrate 1 MG/ML 5 ML VIAL IV PRN (06:00)
[2024-06-11 06:10] LABS: Base Excess Venous 4.2 mmol/L; Bicarbonate Venous 27.2 mmol/L (24.0-30.0); PCO2 Venous 51.5 mmHg (38-42); pH Blood Venous 7.37 (7.34-7.37)
[2024-06-11 07:23] LABS: Source, Urine Foley catheter
[2024-06-11 07:36] LABS: Appearance, Urine Clear (Clear); Bilirubin, Urine Neg (Neg); Blood, Urine Neg (Neg); Glucose Qualitative, Urine 1+ (Neg); Ketones, Urine Neg (Neg); Leukocyte Esterase, Urine Neg (Neg); Nitrite, Urine Neg (Neg); Protein, Urine 2+ (Neg); Urobilinogen, Urine NORM (Normal)
[2024-06-11 07:45] LABS: Color, Urine No Color (P-Yellow)
[2024-06-11 07:47] LABS: Bacteria Rare /hpf; Red Blood Cells, Urine 0-2 /hpf (0-2); Squamous Epithelial Cells Rare /hpf (Few); White Blood Cells, Urine 0-2 /hpf (0-5)
[2024-06-11 07:48] LABS: Hyaline Casts 0-2 /lpf (0-2); Renal Epithelial Rare /hpf (0-Rare)
[2024-06-11] MEDS ORDERED: Metoprolol Succinate 25 MG TABCR PO SCH (09:00)
[2024-06-11] MEDS ORDERED: Empagliflozin 10 MG TAB PO SCH (09:00)
[2024-06-11] MEDS ORDERED: Enoxaparin 30 MG/0.3 ML SYR SC SCH (09:00)
[2024-06-11] MEDS ORDERED: Clopidogrel Bisulfate 75 MG Tab PO SCH (09:00)
[2024-06-11] MEDS ORDERED: Furosemide 10 MG/ML 4ML Vial IV SCH (09:00)
[2024-06-11] MEDS ORDERED: Magnesium Hydroxide Conc 10 ML UDC PO SCH (09:00)
[2024-06-11] MEDS ORDERED: Sacubitril/Valsartan 49 MG/51 MG Tab PO SCH (09:00)
[2024-06-11] MEDS ORDERED: Albuterol 2.5 MG/3 ML VIAL INH PRN (11:40)
--- NOTE | 2024-06-11 15:38 | NUR ---
MET WITH PATIENT AND HER SON LIBRADO. WE DISCUSSED CODE STATUS. REVIEWED POLST FORM. SON RELAYED THAT DNR AND LIMITED INTERVENTIONS WOULD BE THE MOST APPROPRIATE FOR HER, HE WANTED TO DISCUSS THIS WITH HIS SISTER BEFORE FINISHING POLST.
--- NOTE | 2024-06-11 18:35 | NUR ---
Shift Summary This am, pt minimally responsive, more alert t/o shift, this aftenroon alert, oriented to self and family, does not answer date, place or event. Pt denies pain, chest pain, sob, nausea, dizziness and numb/tingling. Pt on bipap this am / 30% fio2, pulled off and refused early afternoon, placed on 3l o2 via nc, titrated down to ra this afternoon. Tele afib 90-110's, bp stable. Abd soft, nontender, +bt, no bm noted during shift. Gannon in place and patent. Other vss. No other acute changes noted. Will continue to monitor.
[2024-06-12] VITALS (7 sets, daily range): BP systolic 130–156; BP diastolic 81–114
--- NOTE | 2024-06-12 06:02 | NUR ---
SHIFT SUMMARY PT IS A&O X 2-3, KNOWS HER NAME AND AND THAT SHE IS IN THE HOSPITAL, DOSE NOT KNOW TODAY'S DATE OR WHY SHES IN THE HOSPITAL, IS FORGETFUL/ATTEMPTING TO GETTING OUT OF BED AFTER MULTIPLE TIMES OF BEING EDUCATED TO USE THE CALL LIGHT, BED ALARM ACTIVE, MOVING ALL EXTREMITIES EQUALLY/ NO DEFICITS OBSERVED BY THIS RN. CONTINUOUS SPO2, SPO2 GREATER THAN 90% ON RA, NO SIGNS OF RESPIRATORY DISTRESS OBSERVED BY THIS RN. CONTINUOUS TELE MONITORING, AFIB 100 S THE MAJORITY OF THE SHIFT, PULSES PRESENT T/O, PT DENIES CHEST P/P CORTÉS CATH IS SECURE/ PATENT/DRAINING TO GRAVITY, URINE IS PALE YELLOW IN COLOR. PT AMBULATED SBA TO BRP THIS SHIFT AND HAD A SMALL BM. BED LOWEST POSITION, CALL LIGHT IN REACH, AWAITING TO GIVE REPORT TO ONCOMING RN.
[2024-06-12 08:44] LABS: BASOPHILS ABSOLUTE AUTO 0.04 K/mm3 (0.00-0.23); BASOPHILS PERCENT AUTO 1 % (0-2); EOSINOPHILS ABSOLUTE AUTO 0.17 K/mm3 (0.00-0.68); EOSINOPHILS PERCENT AUTO 2 % (0-6); Hematocrit 29.4 % (33.0-51.0); Hemoglobin 10.1 g/dL (11.5-16.0); IMMATURE GRAN ABSOLUTE AUTO 0.03 K/mm3 (0.00-0.10); IMMATURE GRAN PERCENT AUTO 0 % (0-1); LYMPHOCYTES ABSOLUTE AUTO 1.14 K/mm3 (0.84-5.20); LYMPHOCYTES PERCENT AUTO 14 % (21-46); MONOCYTES ABSOLUTE AUTO 0.85 K/mm3 (0.16-1.47); MONOCYTES PERCENT AUTO 10 % (4-13); Mean Corpuscular HGB 31.2 pg (26.0-34.0); Mean Corpuscular HGB Conc 34.4 g/dL (31.5-36.5); Mean Corpuscular Volume 91 fL (80-100); NEUTROPHILS ABSOLUTE AUTO 6.04 K/mm3 (1.96-9.15); NEUTROPHILS PERCENT AUTO 73 % (41-73); Platelet Count 342 K/mm3 (150-400); RDW Coefficient Variation 16.1 % (11.7-14.2); RDW Standard Deviation 53.6 fL (35.1-46.3); Red Blood Cell Count 3.24 M/mm3 (3.80-5.20); White Blood Cell Count 8.27 K/mm3 (4.00-11.30)
[2024-06-12] MEDS ORDERED: Furosemide 40 MG Tab PO SCH (09:00)
[2024-06-12] MEDS ORDERED: Metoprolol Succinate 25 MG TABCR PO SCH (09:00)
[2024-06-12] MEDS ORDERED: Metoprolol Succinate 50 MG TABCR PO SCH (09:00)
[2024-06-12 09:19] LABS: Albumin, Blood 3.5 g/dL (3.4-5.0); Bun/Creatinine Ratio 15.8 (12.0-20.0); Calcium, Blood 9.3 mg/dL (8.5-10.1); Creatinine, Blood 0.95 mg/dL (0.40-1.00); Globulin, Blood 3.6 g/dL (2.2-4.0); Percent Saturation 17.1 % (15.0-50.0); Potassium, Blood 3.2 mmol/L (3.5-5.5); Total Protein, Blood 7.1 g/dL (6.4-8.2)
--- NOTE | 2024-06-12 10:38 | NUR ---
diagnostic tech called with questions regarding implanted devices, discussed with sonFrancis that patient has not had any implantable devices placed since July 2023, Francis confurmed that and updated diagnostic tech. Plans for MRI at approx 1230.
--- NOTE | 2024-06-12 14:02 | NUR ---
THIS RN SPOKE TO DR. PLATT ABOUT CONTINUED TACHYCARDIA ESPECIALLY WITH ACTIVITY. HR UP TO 150'S AND PT SOB WITH ACITIVTY.. DR. OAKLEY WANTS TO DO A OT DOSE OF METOPROLOL SUCC 25MG. ALSO, WE ARE RESTARTING THE PT'S HOME FENTANYL PATCH.
[2024-06-12] MEDS ORDERED: FentaNYL 25 MCG Patch TOP SCH (14:05)
[2024-06-12] MEDS ORDERED: Metoprolol Succinate 25 MG TABCR PO ONE (14:05)
--- NOTE | 2024-06-12 15:27 | NUR ---
PT MOVED TO PCU 10 D/T CONFUSION, AND GETTING OOB MULTIPLE TIMES. PT IS A HIGH FALL RISK.
--- NOTE | 2024-06-12 16:50 | NUR ---
SHIFT SUMMARY THE PT IS A&OX2, SELF AND PERSON. SHE HAS APHASIA AND HAS DIFFICULTY EXPRESSING HER NEEDS. THE PT IS A 1P ASSIST W/ FWW FOR TX. SHE WAS MOVED FROM PCU 13 TO PCU 10 D/T FORGETFULNESS AND NOT APPROPRAITE USE OF THE CALL LIGHT. PT HAS A HX OF FALLS AND REMAINS A HIGH FALL RISK. THE PT'S LEFT PUPIL REMAINS IRREGULAR AND NON REACTIVE, PROVIDER AWARE. THE PT HAS BEEN AFIB ON TELE AND HR HAS BEEN 110'S-150'S. SHE DID HAVE AN INCREASE IN METOPROLOL THIS MORNING AND A OT DOSE THIS AFTERNOON. HR REMAINS ELEVATED WITH ACTIVITY. BP SLIGHTLY HYPERTENSIVE, BUT STABLE. SHE HAS BEEN ON RA T/O THE SHIFT AND DENIES ANY SOB, UNLESS HER HR IS 150'S W/ ACTIVITY. SHE HAS CHRONIC BACK PAIN AND HER FENTANYL PATCH WAS RESTARTED. THE PATCH IS ON THE PT'S UPPER BACK PER SON'S REQUEST D/T THE PT SCRATTING AT HER PATCHES. THE PT BEGAN THE MORNING WITH A CORTÉS AND IT WAS D/C'D. SHE HAS VOIDED MULTIPLE TIMES SINCE PULLING IT. PHYSICAL THERAPY IS ORDERED, BUT DID NOT WORK WITH THE PT TODAY BECAUSE THEY CAME AROUND WHEN THE PT'S HR WAS UP IN THE 140'S-150'S. THEY STATED THEY WILL REEVALUATE 06/13. THE PT DID HAVE AN MRI OF HER HEAD AND A CAROTID US COMPLETED. MD AWARE OF RESULTS, NO NEW ORDERS. THE PT'S SON HAS BEEN AT BEDSIDE AND UPDATED ON CARE. BED ALARM REMAINS ON AND CALL LIGHT IN REACH. SEE NOTES FOR ANY UPDATES.
[2024-06-12] MEDS ORDERED: Potassium Chl 20MEQ/Water100ML 100 ML IV STA (18:37)
[2024-06-12] MEDS ORDERED: Potassium Chloride 20 MEQ in NS 90 ML IV ONE (18:45)
[2024-06-12] MEDS ORDERED: NS 250 ML IV PRN (19:50)
[2024-06-12] MEDS ORDERED: Famotidine 20 MG Tab PO SCH (21:25)
[2024-06-12] MEDS ORDERED: Potassium Chloride 10 Meq Tablet SA PO ONE (21:25)
[2024-06-13 03:45] VITALS: BP 123/108
[2024-06-13 04:18] LABS: BASOPHILS ABSOLUTE AUTO 0.03 K/mm3 (0.00-0.23); BASOPHILS PERCENT AUTO 0 % (0-2); EOSINOPHILS PERCENT AUTO 3 % (0-6); Hematocrit 29.4 % (33.0-51.0); Hemoglobin 10.2 g/dL (11.5-16.0); IMMATURE GRAN ABSOLUTE AUTO 0.02 K/mm3 (0.00-0.10); IMMATURE GRAN PERCENT AUTO 0 % (0-1); LYMPHOCYTES ABSOLUTE AUTO 1.56 K/mm3 (0.84-5.20); LYMPHOCYTES PERCENT AUTO 19 % (21-46); MONOCYTES ABSOLUTE AUTO 1.17 K/mm3 (0.16-1.47); MONOCYTES PERCENT AUTO 15 % (4-13); Mean Corpuscular HGB 31.3 pg (26.0-34.0); Mean Corpuscular HGB Conc 34.7 g/dL (31.5-36.5); Mean Corpuscular Volume 90 fL (80-100); Mean Platelet Volume 10.1 fL (9.1-12.4); NEUTROPHILS ABSOLUTE AUTO 5.08 K/mm3 (1.96-9.15); NEUTROPHILS PERCENT AUTO 63 % (41-73); Platelet Count 384 K/mm3 (150-400); RDW Coefficient Variation 16.2 % (11.7-14.2); RDW Standard Deviation 53.8 fL (35.1-46.3); Red Blood Cell Count 3.26 M/mm3 (3.80-5.20); White Blood Cell Count 8.06 K/mm3 (4.00-11.30)
[2024-06-13 04:47] LABS: Albumin, Blood 3.4 g/dL (3.4-5.0); Albumin/Globulin Ratio 0.9 (0.8-1.8); Bilirubin, Total 0.6 mg/dL (0.1-1.0); Calcium, Blood 9.1 mg/dL (8.5-10.1); Creatinine, Blood 1.05 mg/dL (0.40-1.00); Globulin, Blood 3.6 g/dL (2.2-4.0); Magnesium, Blood 2.2 mg/dL (1.6-2.4); Phosphorus, Blood 2.5 mg/dL (2.5-4.9); Potassium, Blood 3.6 mmol/L (3.5-5.5)
--- NOTE | 2024-06-13 06:29 | NUR ---
SHIFT SUMMARY PT IS A&O X 2, KNOWS HER NAME AND , IS FORGETFUL/ ATTEMPTING TO GET OUT OF BED MULTIPLE TIMES AFTER MULTIPLE TIMES OF BEING EDUCATED TO USE THE CALL LIGHT, BED ALARM ACTIVE, MOVING ALL EXTREMITIES EQUALLY/ NO DEFICITS OBSERVED BY THIS RN, PT IS HAVING DIFFICULTY FIND THE WORDS SHE IS INTENDING TO USE TO COMMUNICATING LEADING TO HER TO BE COME MILDLY FRUSTRATED WITH HERSELF. SPO2 GREATER THAN 90% ON RA, NO SIGNS OF RESPIRATORY DISTRESS OBSERVED BY THIS RN. CONTINUOUS TELE MONITORING, AFIB 100 S THE MAJORITY OF THE SHIFT, PULSES PRESENT T/O, PT DENIES CHEST P/P PT AMBULATED SBA TO BRP TO VOID, URINE YELLOW IN COLOR. BED LOWEST POSITION, CALL LIGHT IN REACH, AWAITING TO GIVE REPORT TO ONCOMING RN.
[2024-06-13 07:26] VITALS: BP 137/87
[2024-06-13] MEDS ORDERED: Lactobacil 2-S.Thermo-Bifido 1 1 Cap PO SCH (09:00)
[2024-06-13 09:29] VITALS: BP 113/73
[2024-06-13 13:13] VITALS: BP 134/91
[2024-06-13] MEDS ORDERED: BISA10S PR (14:28)
[2024-06-13] MEDS ORDERED: CLOP75 PO (14:29)
[2024-06-13] MEDS ORDERED: JARDIANCE10 MG PO (14:34)
[2024-06-13] MEDS ORDERED: FURO20 PO (14:35)
[2024-06-13] MEDS ORDERED: DULCOLAX400 MG/5 M PO ×2 (14:40→14:41)
[2024-06-13] MEDS ORDERED: ONDA4 PO (14:42)
[2024-06-13] MEDS ORDERED: OXAYDO5 M1 PO (14:45)
[2024-06-13] MEDS ORDERED: VISBIOME 112.51 EACH PO (14:46)
[2024-06-13] MEDS ORDERED: DULO30 PO (14:59)
[2024-06-13] MEDS ORDERED: CETI5 PO (15:00)
[2024-06-13] MEDS ORDERED: FLUT.05NI (15:01)
[2024-06-13 16:38] VITALS: BP 142/96
--- NOTE | 2024-06-13 17:22 | NUR ---
DISCHARGE SUMMARY PT ALERT, ABLE TO MAKE NEEDS KNOWN. VSS. DENIES PAIN. PT CLEARED FOR DISCHARGE BY . [facility] NOTIFIED. SON NOTIFIED. SON ARRIVED TO TRANSPORT PT. TELEMETRY REMOVED. IV REMOVED. PT DRESSED IN HOME CLOTHING. VITALS DONE. PT ABLE TO WORK WITH PT AND WALK AROUND UNIT THIS SHIFT. DISCHARGE PAPERWORK FAXED TO [facility] WELL GIVEN TO PT'S SON. PT WHEELED TO PRIVATE VEHICLE WITH BELONGINGS BY STAFF.
== END 2024-06-13 16:40 | disposition home health service (06) | DRG 689 ==
LOC: ER 12:50 → MEDS 18:38 → PCU 18:38 → MEDS 22:27 → PCU 06-11 03:11
PROVIDERS: Family Medicine; Internal Medicine; Physician Assistant; Student in an Organized Health Care Education/Training Program; ADMIT Family Medicine
PROC: 5A09357 Assistance with Respiratory Ventilation, Less than 24 Consecutive Hours, Continuous Positive Airway Pressure (ICD-10-PCS; principal; 2024-06-11)
DX: N39.0 Urinary tract infection, site not specified (principal); J96.00 Acute respiratory failure, unspecified whether with hypoxia or hypercapnia; E87.1 Hypo-osmolality and hyponatremia; G93.49 Other encephalopathy; I50.22 Chronic systolic (congestive) heart failure; I16.0 Hypertensive urgency; I11.0 Hypertensive heart disease with heart failure; Z28.21 Immunization not carried out because of patient refusal; I25.10 Atherosclerotic heart disease of native coronary artery without angina pectoris; J44.9 Chronic obstructive pulmonary disease, unspecified; D64.9 Anemia, unspecified; E78.5 Hyperlipidemia, unspecified; F32.A Depression, unspecified; F41.9 Anxiety disorder, unspecified; K59.00 Constipation, unspecified; G47.00 Insomnia, unspecified; I10 Essential (primary) hypertension; K21.9 Gastro-esophageal reflux disease without esophagitis; G89.4 Chronic pain syndrome; Z95.2 Presence of prosthetic heart valve; I48.91 Unspecified atrial fibrillation; Z91.048 Other nonmedicinal substance allergy status; Z79.899 Other long term (current) drug therapy
CPT/HCPCS: 36415; 70450; 70551; 71045; 74018; 80053; 81001; 82728; 82803; 82947; 83540; 83550; 83605; 83735; 83880; 84100; 85025; 87040; 87086; 87428-QW; 93880; 94660; 94760; 94762; 96374; 97116; 97162; 97165; 97535; 99285-25; A9270; J0696; J0780; J1940; J2060; J2405; J3480; J7030; J7050

== ENCOUNTER 2024-08-03 05:51 | Emergency (ER) | payer OTHER ==
[~2024-08-03] VITALS: Ht 157.5 cm; Wt 54.4 kg
[~2024-08-03 05:51] MED LIST changes: +BISA10S PR; +CETI5 PO; +DULO30 PO; +FLUT.05NI; +JARDIANCE10 MG PO; +ONDA4 PO; +OXAYDO5 M1 PO; +VISBIOME 112.51 EACH PO
[2024-08-03] MEDS ORDERED: OxyCODONE HCL 5 MG TAB PO ONE (06:40)
[2024-08-03 07:19] LABS: BASOPHILS ABSOLUTE AUTO 0.02 K/mm3 (0.00-0.23); BASOPHILS PERCENT AUTO 0 % (0-2); EOSINOPHILS ABSOLUTE AUTO 0.14 K/mm3 (0.00-0.68); EOSINOPHILS PERCENT AUTO 2 % (0-6); Hematocrit 26.5 % (33.0-51.0); Hemoglobin 8.7 g/dL (11.5-16.0); IMMATURE GRAN ABSOLUTE AUTO 0.01 K/mm3 (0.00-0.10); IMMATURE GRAN PERCENT AUTO 0 % (0-1); LYMPHOCYTES ABSOLUTE AUTO 1.34 K/mm3 (0.84-5.20); LYMPHOCYTES PERCENT AUTO 20 % (21-46); MONOCYTES ABSOLUTE AUTO 0.56 K/mm3 (0.16-1.47); MONOCYTES PERCENT AUTO 9 % (4-13); Mean Corpuscular HGB 30.9 pg (26.0-34.0); Mean Corpuscular HGB Conc 32.8 g/dL (31.5-36.5); Mean Corpuscular Volume 94 fL (80-100); Mean Platelet Volume 10.5 fL (9.1-12.4); NEUTROPHILS ABSOLUTE AUTO 4.53 K/mm3 (1.96-9.15); NEUTROPHILS PERCENT AUTO 69 % (41-73); Platelet Count 305 K/mm3 (150-400); RDW Coefficient Variation 14.7 % (11.7-14.2); Red Blood Cell Count 2.82 M/mm3 (3.80-5.20)
[2024-08-03 07:40] LABS: Albumin, Blood 3.7 g/dL (3.4-5.0); Albumin/Globulin Ratio 1.2 (0.8-1.8); Bilirubin, Total 0.6 mg/dL (0.1-1.0); Bun/Creatinine Ratio 18.5 (12.0-20.0); Creatinine, Blood 0.81 mg/dL (0.40-1.00); Globulin, Blood 3.2 g/dL (2.2-4.0); Magnesium, Blood 2.3 mg/dL (1.6-2.4); Potassium, Blood 3.2 mmol/L (3.5-5.5); Total Protein, Blood 6.9 g/dL (6.4-8.2)
[2024-08-03] MEDS ORDERED: Metoprolol Succinate 50 MG TABCR PO ONE (07:55)
[2024-08-03] MEDS ORDERED: Metoprolol Tartrate 1 MG/ML 5 ML VIAL IV ONE (07:55)
[2024-08-03] MEDS ORDERED: Potassium Chloride 20 MEQ/15 ML UDC PO ONE (08:05)
[2024-08-03] MEDS ORDERED: Potassium Chloride 20 MEQ TabCR PO ONE (08:05)
[2024-08-03 09:30] VITALS: BP 178/79
== END 2024-08-03 09:53 | disposition home or self-care (01) ==
LOC: ER 05:51
PROVIDERS: Student in an Organized Health Care Education/Training Program
DX: S09.90XA Unspecified injury of head, initial encounter (principal); S60.211A Contusion of right wrist, initial encounter; I48.20 Chronic atrial fibrillation, unspecified; E87.6 Hypokalemia; D64.9 Anemia, unspecified; Z87.891 Personal history of nicotine dependence; W18.30XA Fall on same level, unspecified, initial encounter; Z91.048 Other nonmedicinal substance allergy status; Z79.899 Other long term (current) drug therapy; Z79.891 Long term (current) use of opiate analgesic; Z79.890 Hormone replacement therapy; Z79.51 Long term (current) use of inhaled steroids; Z79.52 Long term (current) use of systemic steroids; Z79.83 Long term (current) use of bisphosphonates; Z79.1 Long term (current) use of non-steroidal anti-inflammatories (NSAID); Z79.4 Long term (current) use of insulin
CPT/HCPCS: 70450; 72125; 73110; 80053; 83735; 85025; 93005; 93010; 96374; 99284-25; A9270

== ENCOUNTER 2024-08-10 23:21 | Emergency (ER) | payer OTHER ==
[~2024-08-10] VITALS: Ht 165.1 cm; Wt 68.0 kg
[2024-08-11] MEDS ORDERED: Acetaminophen 500 MG Tab PO ONE (00:30)
[2024-08-11 02:00] VITALS: BP 141/106
== END 2024-08-11 03:11 | disposition home or self-care (01) ==
LOC: ER 23:21
DX: Z04.3 Encounter for examination and observation following other accident (principal); I48.91 Unspecified atrial fibrillation; Z79.01 Long term (current) use of anticoagulants; Z91.048 Other nonmedicinal substance allergy status; Z79.899 Other long term (current) drug therapy; I50.20 Unspecified systolic (congestive) heart failure; M19.90 Unspecified osteoarthritis, unspecified site; W18.30XA Fall on same level, unspecified, initial encounter
CPT/HCPCS: 70450; 72125; 99285-25; A9270

== ENCOUNTER 2024-10-21 18:17 | Emergency (ER) | payer OTHER ==
[~2024-10-21] VITALS: Ht 154.9 cm; Wt 61.2 kg
[2024-10-21 19:01] LABS: BASOPHILS ABSOLUTE AUTO 0.01 K/mm3 (0.00-0.23); BASOPHILS PERCENT AUTO 0 % (0-2); EOSINOPHILS ABSOLUTE AUTO 0.06 K/mm3 (0.00-0.68); EOSINOPHILS PERCENT AUTO 1 % (0-6); Hematocrit 25.7 % (33.0-51.0); Hemoglobin 8.7 g/dL (11.5-16.0); IMMATURE GRAN ABSOLUTE AUTO 0.03 K/mm3 (0.00-0.10); IMMATURE GRAN PERCENT AUTO 0 % (0-1); LYMPHOCYTES ABSOLUTE AUTO 1.12 K/mm3 (0.84-5.20); LYMPHOCYTES PERCENT AUTO 17 % (21-46); MONOCYTES ABSOLUTE AUTO 0.79 K/mm3 (0.16-1.47); MONOCYTES PERCENT AUTO 12 % (4-13); Mean Corpuscular HGB Conc 33.9 g/dL (31.5-36.5); Mean Corpuscular Volume 91 fL (80-100); NEUTROPHILS ABSOLUTE AUTO 4.75 K/mm3 (1.96-9.15); NEUTROPHILS PERCENT AUTO 70 % (41-73); NRBC ABSOLUTE 0.00 K/mm3 (0.00-0.02); NRBC Auto 0.0 /100 WBC (0.0-0.2); Platelet Count 253 K/mm3 (150-400); RDW Coefficient Variation 15.6 % (11.7-14.2); RDW Standard Deviation 51.3 fL (35.1-46.3)
[2024-10-21 19:47] LABS: Anion Gap 7.0 mmol/L (3-11); Blood Urea Nitrogen 26.0 mg/dL (8-24); CO2, Blood 30.0 mmol/L (21-32); Calcium, Blood 9.0 mg/dL (8.5-10.1); Chloride, Blood 97.0 mmol/L (98-108); Creatinine, Blood 1.09 mg/dL (0.40-1.00); Glucose, Blood 106.0 mg/dL (70-99); Magnesium, Blood 2.3 mg/dL (1.6-2.4); Potassium, Blood 4.1 mmol/L (3.5-5.5); Sodium, Blood 130.0 mmol/L (136-145)
[2024-10-21 21:11] VITALS: BP 166/100
== END 2024-10-21 21:27 | disposition home or self-care (01) ==
LOC: ER 18:17
PROVIDERS: Emergency Medicine
DX: I11.0 Hypertensive heart disease with heart failure (principal); I50.23 Acute on chronic systolic (congestive) heart failure; J44.9 Chronic obstructive pulmonary disease, unspecified; I48.91 Unspecified atrial fibrillation; I25.10 Atherosclerotic heart disease of native coronary artery without angina pectoris; Z79.01 Long term (current) use of anticoagulants; Z79.899 Other long term (current) drug therapy; Z91.048 Other nonmedicinal substance allergy status; Z87.891 Personal history of nicotine dependence
CPT/HCPCS: 71045; 80048; 83735; 83880; 84484; 85025; 93005; 93010; 96374; 99285-25; J1938

== ENCOUNTER 2024-11-05 13:35 | Emergency (ER) | payer OTHER ==
[~2024-11-05] VITALS: Ht 157.5 cm; Wt 59.0 kg
[2024-11-05 15:02] LABS: BASOPHILS ABSOLUTE AUTO 0.02 K/mm3 (0.00-0.23); BASOPHILS PERCENT AUTO 0 % (0-2); EOSINOPHILS ABSOLUTE AUTO 0.12 K/mm3 (0.00-0.68); EOSINOPHILS PERCENT AUTO 2 % (0-6); Hematocrit 27.9 % (33.0-51.0); Hemoglobin 9.1 g/dL (11.5-16.0); IMMATURE GRAN ABSOLUTE AUTO 0.02 K/mm3 (0.00-0.10); IMMATURE GRAN PERCENT AUTO 0 % (0-1); LYMPHOCYTES ABSOLUTE AUTO 1.21 K/mm3 (0.84-5.20); LYMPHOCYTES PERCENT AUTO 17 % (21-46); MONOCYTES ABSOLUTE AUTO 0.84 K/mm3 (0.16-1.47); MONOCYTES PERCENT AUTO 12 % (4-13); Mean Corpuscular HGB Conc 32.6 g/dL (31.5-36.5); Mean Corpuscular Volume 93 fL (80-100); NEUTROPHILS ABSOLUTE AUTO 4.99 K/mm3 (1.96-9.15); NEUTROPHILS PERCENT AUTO 69 % (41-73); NRBC ABSOLUTE 0.00 K/mm3 (0.00-0.02); NRBC Auto 0.0 /100 WBC (0.0-0.2); Platelet Count 263 K/mm3 (150-400); RDW Coefficient Variation 16.0 % (11.7-14.2); RDW Standard Deviation 54.7 fL (35.1-46.3)
[2024-11-05 15:37] LABS: Alanine Aminotransfer (ALT/SGP 29.0 U/L (12-78); Albumin, Blood 3.7 g/dL (3.4-5.0); Albumin/Globulin Ratio 1.0 (0.8-1.8); Anion Gap 6.0 mmol/L (3-11); Aspartate Aminotrans (AST/SGOT 36.0 U/L (12-37); Bilirubin, Total 0.8 mg/dL (0.1-1.0); Blood Urea Nitrogen 18.0 mg/dL (8-24); CO2, Blood 30.0 mmol/L (21-32); Calcium, Blood 8.7 mg/dL (8.5-10.1); Chloride, Blood 97.0 mmol/L (98-108); Creatinine, Blood 0.91 mg/dL (0.40-1.00); Globulin, Blood 3.8 g/dL (2.2-4.0); Glucose, Blood 102.0 mg/dL (70-99); Potassium, Blood 4.0 mmol/L (3.5-5.5); Sodium, Blood 129.0 mmol/L (136-145); Total Protein, Blood 7.5 g/dL (6.4-8.2)
[2024-11-05 20:30] VITALS: BP 172/81
== END 2024-11-05 20:54 | disposition home or self-care (01) ==
LOC: ER 13:35
PROVIDERS: Emergency Medicine
DX: R60.0 Localized edema (principal); I50.20 Unspecified systolic (congestive) heart failure; I25.10 Atherosclerotic heart disease of native coronary artery without angina pectoris; Z87.891 Personal history of nicotine dependence; Z95.5 Presence of coronary angioplasty implant and graft; Z95.2 Presence of prosthetic heart valve; Z91.048 Other nonmedicinal substance allergy status; Z79.01 Long term (current) use of anticoagulants; Z79.51 Long term (current) use of inhaled steroids; Z79.02 Long term (current) use of antithrombotics/antiplatelets; Z79.84 Long term (current) use of oral hypoglycemic drugs; Z79.899 Other long term (current) drug therapy
CPT/HCPCS: 71046; 80053; 83880; 84484; 85025; 93005; 93010; 96374; 99284-25; J1938

== ENCOUNTER 2024-12-02 05:01 | Emergency (ER) | payer OTHER ==
[~2024-12-02] VITALS: Ht 160 cm; Wt 63.5 kg
[2024-12-02] MEDS ORDERED: FentaNYL Citrate 50 MCG/ML 2 ML Injection IV PRN (05:10)
[2024-12-02 05:43] LABS: BASOPHILS ABSOLUTE AUTO 0.02 K/mm3 (0.00-0.23); BASOPHILS PERCENT AUTO 0 % (0-2); EOSINOPHILS ABSOLUTE AUTO 0.14 K/mm3 (0.00-0.68); EOSINOPHILS PERCENT AUTO 2 % (0-6); Hematocrit 27.4 % (33.0-51.0); Hemoglobin 8.8 g/dL (11.5-16.0); IMMATURE GRAN ABSOLUTE AUTO 0.03 K/mm3 (0.00-0.10); IMMATURE GRAN PERCENT AUTO 1 % (0-1); LYMPHOCYTES ABSOLUTE AUTO 1.22 K/mm3 (0.84-5.20); LYMPHOCYTES PERCENT AUTO 18 % (21-46); MONOCYTES ABSOLUTE AUTO 0.68 K/mm3 (0.16-1.47); MONOCYTES PERCENT AUTO 10 % (4-13); Mean Corpuscular HGB Conc 32.1 g/dL (31.5-36.5); Mean Corpuscular Volume 95 fL (80-100); NEUTROPHILS ABSOLUTE AUTO 4.57 K/mm3 (1.96-9.15); NEUTROPHILS PERCENT AUTO 69 % (41-73); NRBC ABSOLUTE 0.00 K/mm3 (0.00-0.02); NRBC Auto 0.0 /100 WBC (0.0-0.2); Platelet Count 238 K/mm3 (150-400); RDW Coefficient Variation 15.5 % (11.7-14.2); RDW Standard Deviation 54.2 fL (35.1-46.3)
[2024-12-02 05:58] LABS: Prothrombin Time Results 11.4 Sec (9.7-11.5)
[2024-12-02 06:21] LABS: Alanine Aminotransfer (ALT/SGP 28.0 U/L (12-78); Albumin, Blood 3.4 g/dL (3.4-5.0); Albumin/Globulin Ratio 1.0 (0.8-1.8); Anion Gap 9.0 mmol/L (3-11); Aspartate Aminotrans (AST/SGOT 29.0 U/L (12-37); Bilirubin, Total 0.4 mg/dL (0.1-1.0); Blood Urea Nitrogen 19.0 mg/dL (8-24); CO2, Blood 26.0 mmol/L (21-32); Calcium, Blood 8.4 mg/dL (8.5-10.1); Chloride, Blood 100.0 mmol/L (98-108); Creatinine, Blood 1.06 mg/dL (0.40-1.00); Globulin, Blood 3.5 g/dL (2.2-4.0); Glucose, Blood 118.0 mg/dL (70-99); Potassium, Blood 4.3 mmol/L (3.5-5.5); Sodium, Blood 131.0 mmol/L (136-145); Total Protein, Blood 6.9 g/dL (6.4-8.2)
[2024-12-02] MEDS ORDERED: Morphine Sulfate 4 MG/1 ML Injection IV ONE (06:50)
[2024-12-02] MEDS ORDERED: Labetalol HCL 5 MG/ML 4ML Injection (Single Dose) IV ONE (06:50)
[2024-12-02] MEDS ORDERED: Human Prothrombin Complx(Pcc) 2,000 UNIT in Water For Injection,Sterile 80 ML IV ONE (07:45)
[2024-12-02 16:30] VITALS: BP 141/88
== END 2024-12-02 16:50 | disposition short-term general hospital (02) ==
LOC: ER 05:01
PROVIDERS: Emergency Medicine
DX: S06.5XAA Traumatic subdural hemorrhage with loss of consciousness status unknown, initial encounter (principal); W18.30XA Fall on same level, unspecified, initial encounter; I25.10 Atherosclerotic heart disease of native coronary artery without angina pectoris; I25.2 Old myocardial infarction; I50.20 Unspecified systolic (congestive) heart failure; Z79.01 Long term (current) use of anticoagulants; Z79.899 Other long term (current) drug therapy; Z91.048 Other nonmedicinal substance allergy status; Z87.891 Personal history of nicotine dependence; Z95.1 Presence of aortocoronary bypass graft; Z95.5 Presence of coronary angioplasty implant and graft
CPT/HCPCS: 70450; 72125; 80053; 85025; 85610; 85730; 93005; 93010; 96374; 96375; 96376; 99285-25; A6590; A9270; J2270; J3010; J7168

== ENCOUNTER → 2025-01-16 | Outpatient (CLI) | payer OTHER ==
[2025-01-16 12:54] LABS: Bilirubin, Urine Neg (Neg); Color, Urine Yellow (P-Yellow); Glucose Qualitative, Urine Neg (Neg); Ketones, Urine Neg (Neg); Leukocyte Esterase, Urine Neg (Neg); Protein, Urine 3+ (Neg); Specific Gravity, Urine 1.020 (1.003-1.022); Urobilinogen, Urine NORM (Normal)
[2025-01-16 13:28] LABS: Red Blood Cells, Urine 0-2 /hpf (0-2); White Blood Cells, Urine 0-2 /hpf (0-5)
== END | disposition home or self-care (01) ==
LOC: LAB SHORT 12:04 → LAB 12:04
PROVIDERS: Family Medicine
DX: E11.21 Type 2 diabetes mellitus with diabetic nephropathy (principal); K21.9 Gastro-esophageal reflux disease without esophagitis; I87.2 Venous insufficiency (chronic) (peripheral); I48.91 Unspecified atrial fibrillation; E78.5 Hyperlipidemia, unspecified; E03.9 Hypothyroidism, unspecified; D63.1 Anemia in chronic kidney disease
CPT/HCPCS: 81001; 87086

== ENCOUNTER 2025-01-26 17:11 | Emergency (ER) | payer OTHER ==
[~2025-01-26] VITALS: Ht 157.5 cm; Wt 59.9 kg
[2025-01-26 18:02] LABS: BASOPHILS ABSOLUTE AUTO 0.03 K/mm3 (0.00-0.23); BASOPHILS PERCENT AUTO 1 % (0-2); EOSINOPHILS ABSOLUTE AUTO 0.07 K/mm3 (0.00-0.68); EOSINOPHILS PERCENT AUTO 1 % (0-6); Hematocrit 19.7 % (33.0-51.0); Hemoglobin 6.5 g/dL (11.5-16.0); IMMATURE GRAN ABSOLUTE AUTO 0.02 K/mm3 (0.00-0.10); IMMATURE GRAN PERCENT AUTO 0 % (0-1); LYMPHOCYTES ABSOLUTE AUTO 1.30 K/mm3 (0.84-5.20); LYMPHOCYTES PERCENT AUTO 20 % (21-46); MONOCYTES ABSOLUTE AUTO 0.54 K/mm3 (0.16-1.47); MONOCYTES PERCENT AUTO 9 % (4-13); Mean Corpuscular HGB Conc 33.0 g/dL (31.5-36.5); Mean Corpuscular Volume 86 fL (80-100); NEUTROPHILS ABSOLUTE AUTO 4.42 K/mm3 (1.96-9.15); NEUTROPHILS PERCENT AUTO 69 % (41-73); NRBC ABSOLUTE 0.00 K/mm3 (0.00-0.02); NRBC Auto 0.0 /100 WBC (0.0-0.2); Platelet Count 291 K/mm3 (150-400); RDW Coefficient Variation 14.9 % (11.7-14.2); RDW Standard Deviation 46.6 fL (35.1-46.3)
[2025-01-26 18:23] LABS: Alanine Aminotransfer (ALT/SGP 34.0 U/L (12-78); Albumin, Blood 3.8 g/dL (3.4-5.0); Albumin/Globulin Ratio 1.2 (0.8-1.8); Anion Gap 11.0 mmol/L (3-11); Aspartate Aminotrans (AST/SGOT 28.0 U/L (12-37); Bilirubin, Total 0.4 mg/dL (0.1-1.0); Blood Urea Nitrogen 27.0 mg/dL (8-24); CO2, Blood 22.0 mmol/L (21-32); Calcium, Blood 8.7 mg/dL (8.5-10.1); Chloride, Blood 102.0 mmol/L (98-108); Creatinine, Blood 1.05 mg/dL (0.40-1.00); Globulin, Blood 3.1 g/dL (2.2-4.0); Glucose, Blood 105.0 mg/dL (70-99); Potassium, Blood 4.3 mmol/L (3.5-5.5); Sodium, Blood 131.0 mmol/L (136-145); Total Protein, Blood 6.9 g/dL (6.4-8.2)
[2025-01-26 18:26] LABS: Influenza A, PCR NEGATIVE (NEGATIVE); Influenza B, PCR NEGATIVE (NEGATIVE); Resp Syncytial Virus, PCR NEGATIVE (NEGATIVE); SARS-Cov-2 (COVID-19) PCR, MMC NEGATIVE (NEGATIVE)
[2025-01-26] MEDS ORDERED: NS 1,000 ML IV SCH (20:20)
[2025-01-26 23:35] VITALS: BP 159/98
== END 2025-01-26 23:40 | disposition home or self-care (01) ==
LOC: ER 17:11
PROVIDERS: Emergency Medicine
DX: D64.9 Anemia, unspecified (principal); I48.91 Unspecified atrial fibrillation; I50.20 Unspecified systolic (congestive) heart failure; I25.10 Atherosclerotic heart disease of native coronary artery without angina pectoris; I25.2 Old myocardial infarction; Z91.048 Other nonmedicinal substance allergy status; Z79.899 Other long term (current) drug therapy; Z79.01 Long term (current) use of anticoagulants; Z87.891 Personal history of nicotine dependence
CPT/HCPCS: 36430; 71046; 80053; 82272; 85025; 86850; 86900; 86901; 86923; 87637; 93005; 93010; 99285-25; J7030; P9016

== ENCOUNTER 2025-01-27 19:39 | Emergency (ER) | payer OTHER ==
[~2025-01-27] VITALS: Ht 157.5 cm; Wt 55.8 kg
[2025-01-27 20:22] LABS: BASOPHILS ABSOLUTE AUTO 0.03 K/mm3 (0.00-0.23); BASOPHILS PERCENT AUTO 1 % (0-2); EOSINOPHILS ABSOLUTE AUTO 0.07 K/mm3 (0.00-0.68); EOSINOPHILS PERCENT AUTO 1 % (0-6); Hematocrit 24.2 % (33.0-51.0); Hemoglobin 7.9 g/dL (11.5-16.0); IMMATURE GRAN ABSOLUTE AUTO 0.02 K/mm3 (0.00-0.10); IMMATURE GRAN PERCENT AUTO 0 % (0-1); LYMPHOCYTES ABSOLUTE AUTO 1.21 K/mm3 (0.84-5.20); LYMPHOCYTES PERCENT AUTO 21 % (21-46); MONOCYTES ABSOLUTE AUTO 0.68 K/mm3 (0.16-1.47); MONOCYTES PERCENT AUTO 12 % (4-13); Mean Corpuscular HGB Conc 32.6 g/dL (31.5-36.5); Mean Corpuscular Volume 85 fL (80-100); NEUTROPHILS ABSOLUTE AUTO 3.69 K/mm3 (1.96-9.15); NEUTROPHILS PERCENT AUTO 65 % (41-73); NRBC ABSOLUTE 0.00 K/mm3 (0.00-0.02); NRBC Auto 0.0 /100 WBC (0.0-0.2); Platelet Count 330 K/mm3 (150-400); RDW Coefficient Variation 15.4 % (11.7-14.2); RDW Standard Deviation 47.5 fL (35.1-46.3)
[2025-01-27 20:45] VITALS: BP 147/91
[2025-01-27 20:49] LABS: Alanine Aminotransfer (ALT/SGP 35.0 U/L (12-78); Albumin, Blood 3.7 g/dL (3.4-5.0); Albumin/Globulin Ratio 1.0 (0.8-1.8); Anion Gap 7.0 mmol/L (3-11); Aspartate Aminotrans (AST/SGOT 38.0 U/L (12-37); Bilirubin, Total 0.5 mg/dL (0.1-1.0); Blood Urea Nitrogen 30.0 mg/dL (8-24); CO2, Blood 24.0 mmol/L (21-32); Calcium, Blood 8.7 mg/dL (8.5-10.1); Chloride, Blood 103.0 mmol/L (98-108); Creatinine, Blood 1.16 mg/dL (0.40-1.00); Globulin, Blood 3.6 g/dL (2.2-4.0); Glucose, Blood 102.0 mg/dL (70-99); Potassium, Blood 4.3 mmol/L (3.5-5.5); Sodium, Blood 130.0 mmol/L (136-145); Total Protein, Blood 7.3 g/dL (6.4-8.2)
== END 2025-01-27 22:59 | disposition home or self-care (01) ==
LOC: ER 19:39
PROVIDERS: Student in an Organized Health Care Education/Training Program
DX: R06.02 Shortness of breath (principal); E87.1 Hypo-osmolality and hyponatremia; I11.0 Hypertensive heart disease with heart failure; I50.20 Unspecified systolic (congestive) heart failure; I25.10 Atherosclerotic heart disease of native coronary artery without angina pectoris; I25.2 Old myocardial infarction; M06.9 Rheumatoid arthritis, unspecified; Z95.1 Presence of aortocoronary bypass graft; Z95.5 Presence of coronary angioplasty implant and graft; Z95.2 Presence of prosthetic heart valve; Z87.891 Personal history of nicotine dependence; Z91.048 Other nonmedicinal substance allergy status; Z79.51 Long term (current) use of inhaled steroids; Z79.01 Long term (current) use of anticoagulants; Z79.84 Long term (current) use of oral hypoglycemic drugs; Z79.899 Other long term (current) drug therapy
CPT/HCPCS: 71046; 80053; 83880; 84484; 85025; 93005; 93010; 99285-25

== ENCOUNTER 2025-02-01 02:46 | Emergency (ER) | payer OTHER ==
[~2025-02-01] VITALS: Ht 154.9 cm; Wt 59.0 kg
[2025-02-01 03:16] LABS: BASOPHILS ABSOLUTE AUTO 0.03 K/mm3 (0.00-0.23); BASOPHILS PERCENT AUTO 1 % (0-2); EOSINOPHILS ABSOLUTE AUTO 0.11 K/mm3 (0.00-0.68); EOSINOPHILS PERCENT AUTO 2 % (0-6); Hematocrit 25.6 % (33.0-51.0); Hemoglobin 8.2 g/dL (11.5-16.0); IMMATURE GRAN ABSOLUTE AUTO 0.01 K/mm3 (0.00-0.10); IMMATURE GRAN PERCENT AUTO 0 % (0-1); LYMPHOCYTES ABSOLUTE AUTO 1.44 K/mm3 (0.84-5.20); LYMPHOCYTES PERCENT AUTO 24 % (21-46); MONOCYTES ABSOLUTE AUTO 0.57 K/mm3 (0.16-1.47); MONOCYTES PERCENT AUTO 10 % (4-13); Mean Corpuscular HGB Conc 32.0 g/dL (31.5-36.5); Mean Corpuscular Volume 88 fL (80-100); NEUTROPHILS ABSOLUTE AUTO 3.82 K/mm3 (1.96-9.15); NEUTROPHILS PERCENT AUTO 64 % (41-73); NRBC ABSOLUTE 0.00 K/mm3 (0.00-0.02); NRBC Auto 0.0 /100 WBC (0.0-0.2); Platelet Count 322 K/mm3 (150-400); RDW Coefficient Variation 15.7 % (11.7-14.2); RDW Standard Deviation 49.0 fL (35.1-46.3)
[2025-02-01 03:38] LABS: Alanine Aminotransfer (ALT/SGP 34.0 U/L (12-78); Albumin, Blood 3.8 g/dL (3.4-5.0); Albumin/Globulin Ratio 1.1 (0.8-1.8); Anion Gap 9.0 mmol/L (3-11); Aspartate Aminotrans (AST/SGOT 31.0 U/L (12-37); Bilirubin, Total 0.5 mg/dL (0.1-1.0); Blood Urea Nitrogen 27.0 mg/dL (8-24); CO2, Blood 24.0 mmol/L (21-32); Calcium, Blood 8.7 mg/dL (8.5-10.1); Chloride, Blood 102.0 mmol/L (98-108); Creatinine, Blood 1.02 mg/dL (0.40-1.00); Globulin, Blood 3.5 g/dL (2.2-4.0); Glucose, Blood 128.0 mg/dL (70-99); Magnesium, Blood 2.4 mg/dL (1.6-2.4); Potassium, Blood 4.0 mmol/L (3.5-5.5); Sodium, Blood 131.0 mmol/L (136-145); Total Protein, Blood 7.3 g/dL (6.4-8.2)
[2025-02-01 04:23] LABS: Influenza A, PCR NEGATIVE (NEGATIVE); Influenza B, PCR NEGATIVE (NEGATIVE); Resp Syncytial Virus, PCR NEGATIVE (NEGATIVE); SARS-Cov-2 (COVID-19) PCR, MMC NEGATIVE (NEGATIVE)
[2025-02-01] MEDS ORDERED: FURO20 PO (05:01)
[2025-02-01 06:09] VITALS: BP 170/84
== END 2025-02-01 08:20 | disposition home or self-care (01) ==
LOC: ER 02:46
PROVIDERS: Student in an Organized Health Care Education/Training Program
DX: R06.00 Dyspnea, unspecified (principal); E87.70 Fluid overload, unspecified; I11.0 Hypertensive heart disease with heart failure; I50.9 Heart failure, unspecified; J44.9 Chronic obstructive pulmonary disease, unspecified; Z87.891 Personal history of nicotine dependence; Z79.51 Long term (current) use of inhaled steroids; Z79.02 Long term (current) use of antithrombotics/antiplatelets; Z79.899 Other long term (current) drug therapy; Z91.048 Other nonmedicinal substance allergy status
CPT/HCPCS: 71045; 80053; 83735; 83880; 85025; 87637; 93005; 93010; 99285-25; A9270

== ENCOUNTER 2025-02-21 22:06 | Emergency (ER) | payer OTHER ==
[~2025-02-21] VITALS: Ht 157.5 cm; Wt 64.9 kg
[2025-02-21 22:46] LABS: BASOPHILS ABSOLUTE AUTO 0.03 K/mm3 (0.00-0.23); BASOPHILS PERCENT AUTO 1 % (0-2); EOSINOPHILS ABSOLUTE AUTO 0.14 K/mm3 (0.00-0.68); EOSINOPHILS PERCENT AUTO 3 % (0-6); Hematocrit 23.9 % (33.0-51.0); Hemoglobin 7.3 g/dL (11.5-16.0); IMMATURE GRAN ABSOLUTE AUTO 0.01 K/mm3 (0.00-0.10); IMMATURE GRAN PERCENT AUTO 0 % (0-1); LYMPHOCYTES ABSOLUTE AUTO 1.37 K/mm3 (0.84-5.20); LYMPHOCYTES PERCENT AUTO 24 % (21-46); MONOCYTES ABSOLUTE AUTO 0.72 K/mm3 (0.16-1.47); MONOCYTES PERCENT AUTO 13 % (4-13); Mean Corpuscular HGB Conc 30.5 g/dL (31.5-36.5); Mean Corpuscular Volume 88 fL (80-100); NEUTROPHILS ABSOLUTE AUTO 3.40 K/mm3 (1.96-9.15); NEUTROPHILS PERCENT AUTO 60 % (41-73); NRBC ABSOLUTE 0.00 K/mm3 (0.00-0.02); NRBC Auto 0.0 /100 WBC (0.0-0.2); Platelet Count 318 K/mm3 (150-400); RDW Coefficient Variation 16.8 % (11.7-14.2); RDW Standard Deviation 52.2 fL (35.1-46.3)
[2025-02-21 23:02] LABS: Prothrombin Time Results 11.7 Sec (9.7-11.5)
[2025-02-21 23:04] LABS: Alanine Aminotransfer (ALT/SGP 20.0 U/L (12-78); Albumin, Blood 3.5 g/dL (3.4-5.0); Albumin/Globulin Ratio 1.0 (0.8-1.8); Anion Gap 10.0 mmol/L (3-11); Aspartate Aminotrans (AST/SGOT 24.0 U/L (12-37); Bilirubin, Total 0.4 mg/dL (0.1-1.0); Blood Urea Nitrogen 24.0 mg/dL (8-24); CO2, Blood 25.0 mmol/L (21-32); Calcium, Blood 8.4 mg/dL (8.5-10.1); Chloride, Blood 100.0 mmol/L (98-108); Creatinine, Blood 1.11 mg/dL (0.40-1.00); Globulin, Blood 3.4 g/dL (2.2-4.0); Glucose, Blood 110.0 mg/dL (70-99); Potassium, Blood 3.9 mmol/L (3.5-5.5); Sodium, Blood 131.0 mmol/L (136-145); Total Protein, Blood 6.9 g/dL (6.4-8.2)
[2025-02-22 05:00] VITALS: BP 162/84
== END 2025-02-22 05:31 | disposition home or self-care (01) ==
LOC: ER 22:06
PROVIDERS: Emergency Medicine
DX: R06.02 Shortness of breath (principal); K21.9 Gastro-esophageal reflux disease without esophagitis; M19.90 Unspecified osteoarthritis, unspecified site; I10 Essential (primary) hypertension; Z87.891 Personal history of nicotine dependence; Z79.51 Long term (current) use of inhaled steroids; Z79.01 Long term (current) use of anticoagulants; Z79.899 Other long term (current) drug therapy; Z91.048 Other nonmedicinal substance allergy status
CPT/HCPCS: 71046; 71260; 80053; 83690; 84484; 85025; 85610; 93005; 93010; 99285-25; Q9967

== ENCOUNTER 2025-02-24 13:47 | Inpatient (IN) | payer OTHER ==
[~2025-02-24] VITALS: Ht 157.5 cm; Wt 77.1 kg
[2025-02-24] MEDS ORDERED: Ipratropium/Albuterol SulF 2.5-0.5MG/3 ML Amp INH ONE (14:50)
[2025-02-24 15:25] LABS: BASOPHILS ABSOLUTE AUTO 0.03 K/mm3 (0.00-0.23); BASOPHILS PERCENT AUTO 1 % (0-2); EOSINOPHILS ABSOLUTE AUTO 0.09 K/mm3 (0.00-0.68); EOSINOPHILS PERCENT AUTO 1 % (0-6); Hematocrit 25.1 % (33.0-51.0); Hemoglobin 8.0 g/dL (11.5-16.0); IMMATURE GRAN ABSOLUTE AUTO 0.01 K/mm3 (0.00-0.10); IMMATURE GRAN PERCENT AUTO 0 % (0-1); LYMPHOCYTES ABSOLUTE AUTO 1.21 K/mm3 (0.84-5.20); LYMPHOCYTES PERCENT AUTO 19 % (21-46); MONOCYTES ABSOLUTE AUTO 0.71 K/mm3 (0.16-1.47); MONOCYTES PERCENT AUTO 11 % (4-13); Mean Corpuscular HGB Conc 31.9 g/dL (31.5-36.5); Mean Corpuscular Volume 88 fL (80-100); NEUTROPHILS ABSOLUTE AUTO 4.47 K/mm3 (1.96-9.15); NEUTROPHILS PERCENT AUTO 68 % (41-73); NRBC ABSOLUTE 0.00 K/mm3 (0.00-0.02); NRBC Auto 0.0 /100 WBC (0.0-0.2); Platelet Count 341 K/mm3 (150-400); RDW Coefficient Variation 16.9 % (11.7-14.2); RDW Standard Deviation 53.1 fL (35.1-46.3)
[2025-02-24 15:46] LABS: Alanine Aminotransfer (ALT/SGP 24.0 U/L (12-78); Albumin, Blood 3.7 g/dL (3.4-5.0); Albumin/Globulin Ratio 1.1 (0.8-1.8); Anion Gap 9.0 mmol/L (3-11); Aspartate Aminotrans (AST/SGOT 30.0 U/L (12-37); Bilirubin, Total 0.5 mg/dL (0.1-1.0); Blood Urea Nitrogen 19.0 mg/dL (8-24); CO2, Blood 25.0 mmol/L (21-32); Calcium, Blood 8.5 mg/dL (8.5-10.1); Chloride, Blood 97.0 mmol/L (98-108); Creatinine, Blood 1.07 mg/dL (0.40-1.00); Globulin, Blood 3.4 g/dL (2.2-4.0); Glucose, Blood 131.0 mg/dL (70-99); Magnesium, Blood 2.5 mg/dL (1.6-2.4); Potassium, Blood 4.1 mmol/L (3.5-5.5); Sodium, Blood 127.0 mmol/L (136-145); Total Protein, Blood 7.1 g/dL (6.4-8.2)
[2025-02-24 16:45] LABS: Influenza A, PCR NEGATIVE (NEGATIVE); Influenza B, PCR NEGATIVE (NEGATIVE); Resp Syncytial Virus, PCR NEGATIVE (NEGATIVE); SARS-Cov-2 (COVID-19) PCR, MMC NEGATIVE (NEGATIVE)
[2025-02-24] MEDS ORDERED: FLU VACC TS2025(65UP)/MF59C/PF 45 MCG/0.5 ML SYRINGE IM SCH (17:40)
[2025-02-24] MEDS ORDERED: Ondansetron HCl 2 MG / ML 2ML Vial IV PRN (17:40)
[2025-02-24] MEDS ORDERED: Magnesium Hydroxide Conc 10 ML UDC PO PRN (17:45)
[2025-02-24] MEDS ORDERED: ALPR.25 PO (20:28)
[2025-02-24] MEDS ORDERED: Methocarbamol500 MG PO (20:30)
[2025-02-24] MEDS ORDERED: GABA100 PO (20:32)
[2025-02-24] MEDS ORDERED: Sacubitril/Valsartan 49 MG/51 MG Tab PO SCH (21:00)
[2025-02-24 21:12] VITALS: BP 148/58
--- NOTE | 2025-02-25 03:43 | NUR ---
SHIFT SUMMARY THIS RN RECEIVED REPORT FROM KEKE IN THE ER. PT ARRIVED TO ROOM AT 2051. THE PT WAS ABLE TO WALK TO HER BED WITH 1 SBA. SHE WAS ORIENTED TO THE ROOM AND ASSISTED TO THE BATHROOM. SHE HAS HAD A LOT OF URGENCY. PUREWICK APPLIED TO ALLOW FOR PT TO SLEEP. THIS HAS WORKED WELL. SHE HAD SOME INCREASED RUL PAIN. HER SCHEDULED PAIN MEDS WERE GIVEN AND THE PT WAS REPOSITIONED AND A HEATING PAD AND WARM BLAKET APPLIED. THE PAIN SUBSIDED AND THE PT WAS ABLE TO SLEEP. ALLEN IS A&OX2-3. SHE KNOWS HER NAME/, SON AND PRESIDENT. SHE HAD SOME CONFUSION TO WHERE SHE WAS AND THE MONTH. SHE REPEATS HERSELF AND GETS CONFUSED WITH DIRECTIONS SOMETIMES. CURRENTLY SHE IS SLEEPING IN HER BED AT THE LOWEST POSITION WITH RAILS X2 AND CALL LIGHT WITHIN REACH.
[2025-02-25 04:46] VITALS: BP 131/67
[2025-02-25 06:22] LABS: BASOPHILS ABSOLUTE AUTO 0.03 K/mm3 (0.00-0.23); BASOPHILS PERCENT AUTO 1 % (0-2); EOSINOPHILS ABSOLUTE AUTO 0.10 K/mm3 (0.00-0.68); EOSINOPHILS PERCENT AUTO 2 % (0-6); Hematocrit 24.5 % (33.0-51.0); Hemoglobin 7.8 g/dL (11.5-16.0); IMMATURE GRAN ABSOLUTE AUTO 0.03 K/mm3 (0.00-0.10); IMMATURE GRAN PERCENT AUTO 1 % (0-1); LYMPHOCYTES ABSOLUTE AUTO 1.20 K/mm3 (0.84-5.20); LYMPHOCYTES PERCENT AUTO 20 % (21-46); MONOCYTES ABSOLUTE AUTO 0.73 K/mm3 (0.16-1.47); MONOCYTES PERCENT AUTO 12 % (4-13); Mean Corpuscular HGB Conc 31.8 g/dL (31.5-36.5); Mean Corpuscular Volume 86 fL (80-100); NEUTROPHILS ABSOLUTE AUTO 4.01 K/mm3 (1.96-9.15); NEUTROPHILS PERCENT AUTO 66 % (41-73); NRBC ABSOLUTE 0.00 K/mm3 (0.00-0.02); NRBC Auto 0.0 /100 WBC (0.0-0.2); Platelet Count 315 K/mm3 (150-400); RDW Coefficient Variation 16.6 % (11.7-14.2); RDW Standard Deviation 50.4 fL (35.1-46.3)
[2025-02-25 06:58] LABS: Alanine Aminotransfer (ALT/SGP 22.0 U/L (12-78); Albumin, Blood 3.4 g/dL (3.4-5.0); Albumin/Globulin Ratio 1.1 (0.8-1.8); Anion Gap 11.0 mmol/L (3-11); Aspartate Aminotrans (AST/SGOT 26.0 U/L (12-37); Bilirubin, Total 0.7 mg/dL (0.1-1.0); Blood Urea Nitrogen 18.0 mg/dL (8-24); CO2, Blood 28.0 mmol/L (21-32); Calcium, Blood 8.9 mg/dL (8.5-10.1); Chloride, Blood 99.0 mmol/L (98-108); Creatinine, Blood 0.97 mg/dL (0.40-1.00); Globulin, Blood 3.2 g/dL (2.2-4.0); Glucose, Blood 106.0 mg/dL (70-99); Potassium, Blood 2.9 mmol/L (3.5-5.5); Sodium, Blood 135.0 mmol/L (136-145); Total Protein, Blood 6.6 g/dL (6.4-8.2)
[2025-02-25 07:26] VITALS: BP 171/80
[2025-02-25] MEDS ORDERED: Potassium Chl 20MEQ/Water100ML 100 ML IV STA (07:46)
[2025-02-25] MEDS ORDERED: Isosorbide Mononitrate 30 MG TABCR PO SCH (09:00)
[2025-02-25] MEDS ORDERED: DULoxetine HCL 20 MG Cap DR PO SCH (09:00)
--- NOTE | 2025-02-25 11:35 | NUR ---
ROUNDED ON PT, WORKING WITH THERAPY
[2025-02-25 11:38] VITALS: BP 118/72
[2025-02-25] MEDS ORDERED: Sod Ferric Gluc Complx/Sucrose 125 MG in NS 100 ML IV SCH (12:00)
--- NOTE | 2025-02-25 14:16 | NUR ---
Upon receiving a referral for spiritual care, I visited the patient. She tells me about her complicated medical problems and her concern that the exact issues are not isolated and therefore no plan of care is in place (according to the patient). She talks about her family; Francis (her beloved son) lives in the area, her one dtr lives in [place], one dtr is estranged and one dtr has . She shares about her [employer] roots but states that she has not been a part of the methodist of years, but has maintained her prayers. I provided therapeutic listening, theological insights, grief support and prayer. The patient responded well and showed signs of an elevated mood. I will continue to remain available to patient and family.
--- NOTE | 2025-02-25 14:45 | NUR ---
DISCUSSED CASE WITH PROVIDER. ROUNDED ON PATIENT. SON WAS NOT AT BEDSIDE WHEN I ARRIVED. ALLEN REPORTED THAT HE HAD JUST LEFT FOR WORK. SHE REQUESTED A FRESH GLASS OF WATER. PATIENT REPORTED THAT SHE WAS NAUSIOUS EARLIER BUT FELT BETTER AT NOW. SHE IS NOT EXPERIENCING ANY PAIN AT THIS TIME. SHE EXPERSSED NO PAIN AT THIS TIME.
[2025-02-25 15:35] VITALS: BP 161/89
--- NOTE | 2025-02-25 15:40 | NUR ---
ASSUMED CARE NOTE RECEIVED REPORT FROM DEWEY CARLIN AND ASSUMED CARE OF PT AT 1520.
[2025-02-25 15:55] VITALS: BP 157/88
--- NOTE | 2025-02-25 17:13 | NUR ---
SHIFT SUMMARY PT A&OX3, CALLS APPROPRIATELY, VSS, AMB W/ ASSIST, TOLERATING, PO, VOIDING, AND PAIN MANAGED PER EMAR. CALL LIGHT WITHIN REACH AND PT ABLE TO MAKE NEEDS KNOWN.
[2025-02-25 19:19] VITALS: BP 145/88
[2025-02-26] VITALS (8 sets, daily range): BP systolic 133–179; BP diastolic 70–105
--- NOTE | 2025-02-26 04:14 | NUR ---
SHIFT SUMMARY PATIENT HAD NO ACUTE CHANGES. AXOX 3 AND FORGETFUL. DENIES CHEST PAIN AND SOB. NAUSEOUS X ONE AND IV ZOFRAN GIVEN WITH GOOD EFFECT. TELE MONITOR AFIB 83. ON 2L O2 NC. SCHEDULE OXYCODONE 5 MG GIVEN FOR CHRONIC PAIN SYNDRONE. PIV INTACT. IMPULSIVE ACTIVATED BED ALARM MULTIPLE TIMES TRYING TO GET OUT OF BED. CALL LIGHT IN REACH. BED IN LOWEST POSITION. WILL CONTINUE TO MONITOR UNTIL DAY SHIFT NURSE ASSUMES CARE.
[2025-02-26 05:56] LABS: BASOPHILS ABSOLUTE AUTO 0.04 K/mm3 (0.00-0.23); BASOPHILS PERCENT AUTO 1 % (0-2); EOSINOPHILS ABSOLUTE AUTO 0.12 K/mm3 (0.00-0.68); EOSINOPHILS PERCENT AUTO 2 % (0-6); Hematocrit 24.3 % (33.0-51.0); Hemoglobin 7.6 g/dL (11.5-16.0); IMMATURE GRAN ABSOLUTE AUTO 0.03 K/mm3 (0.00-0.10); IMMATURE GRAN PERCENT AUTO 0 % (0-1); LYMPHOCYTES ABSOLUTE AUTO 1.20 K/mm3 (0.84-5.20); LYMPHOCYTES PERCENT AUTO 16 % (21-46); MONOCYTES ABSOLUTE AUTO 0.82 K/mm3 (0.16-1.47); MONOCYTES PERCENT AUTO 11 % (4-13); Mean Corpuscular HGB Conc 31.3 g/dL (31.5-36.5); Mean Corpuscular Volume 87 fL (80-100); NEUTROPHILS ABSOLUTE AUTO 5.35 K/mm3 (1.96-9.15); NEUTROPHILS PERCENT AUTO 71 % (41-73); NRBC ABSOLUTE 0.00 K/mm3 (0.00-0.02); NRBC Auto 0.0 /100 WBC (0.0-0.2); Platelet Count 316 K/mm3 (150-400); RDW Coefficient Variation 16.6 % (11.7-14.2); RDW Standard Deviation 51.1 fL (35.1-46.3)
[2025-02-26 06:19] LABS: Alanine Aminotransfer (ALT/SGP 24.0 U/L (12-78); Albumin, Blood 3.7 g/dL (3.4-5.0); Albumin/Globulin Ratio 1.2 (0.8-1.8); Anion Gap 10.0 mmol/L (3-11); Aspartate Aminotrans (AST/SGOT 29.0 U/L (12-37); Bilirubin, Total 0.8 mg/dL (0.1-1.0); Blood Urea Nitrogen 14.0 mg/dL (8-24); CO2, Blood 28.0 mmol/L (21-32); Calcium, Blood 8.8 mg/dL (8.5-10.1); Chloride, Blood 91.0 mmol/L (98-108); Creatinine, Blood 0.98 mg/dL (0.40-1.00); Globulin, Blood 3.2 g/dL (2.2-4.0); Glucose, Blood 112.0 mg/dL (70-99); Potassium, Blood 3.4 mmol/L (3.5-5.5); Sodium, Blood 126.0 mmol/L (136-145); Total Protein, Blood 6.9 g/dL (6.4-8.2)
[2025-02-26] MEDS ORDERED: NS 250 ML IV PRN (12:40)
[2025-02-26] MEDS ORDERED: HydrALAZINE HCl 20 MG / ML 1ML Vial IV PRN (16:20)
--- NOTE | 2025-02-26 17:51 | NUR ---
SHIFT SUMMARY; PT A/OX2-3 (PERSON, SELF, PLACE), REDIRECTABLE W/ INTERMITTENT CONFUSION, AND SBA W/ FWW WHEN AMBULATING. PT FIXATES ON HAVING BLANKETS CERTAIN WAY ON BED AND FEELING "WET" WHEN PUREWICK IS IN PLACE. PT URINATING MULTIPLE TIMES THROUGHOUT THE SHIFT. AT 1550, PT STARTED TO FEEL DIZZY AND JUST NOT RIGHT. VITALS OBTAINED INDICATING HYPERTENSION. CBG TAKEN, READING AT 119. TELE CONFIRMED W/ TELETECH W/ NO ACUTE CHANGES W/ PT AT AFIB W/ 81 PULSE. NEURO CHECK COMPLETED AND NO ABNML FINDINGS FOUND. DR. MATHIAS CALLED AND NOTIFIED OF PT'S S/SXS. ORDER OF NEW APRESOLINE ADDED AND GIVEN PER EMAR. PT REVALUATED STATING DIZZINESS HAS IMPROVED. PT HAD NAUSEA THIS MORNING. PT MEDICATED PER EMAR, W/ RESOLVING OF S/SXS. BED IN LOW POSITION, CALL LIGHT WITHIN REACH AND BED ALARM ACTIVATED.
--- NOTE | 2025-02-26 18:17 | NUR ---
THIS SHOE IRONER HAS REVIEWED AND AGREES WITH ALL NOTES AND ASSESSMENTS BY DEWEY OWEN.
[2025-02-27 01:19] VITALS: BP 156/91
[2025-02-27 01:30] VITALS: BP 140/80
--- NOTE | 2025-02-27 05:19 | NUR ---
SHIFT SUMMARY PT A&Ox2. PLEASANTLY CONFUSED DURING THE NIGHT AND EASILY REORIENTED. CALLS OUT TO [facility] FOR NEEDS. BED ALARM ON. SON AT BEDSIDE FOR A QUICK VISIT AT START OF SHIFT. PT UP TO BATHROOM DURING THE NIGHT. PT REMAINS A-FIB IN THE 90's. PER TELE, PT HAD 5 BEAT RUN OF V-TACH, PT ASYMPTOMATIC. OTHERWISE, VSS. PT ABLE TO SLEEP MOST OF THE NIGHT. BED IN LOWEST POSITION AND CALL LIGHT IN REACH.
[2025-02-27 06:01] VITALS: BP 157/99
[2025-02-27 07:31] VITALS: BP 155/79
[2025-02-27 09:18] LABS: BASOPHILS ABSOLUTE AUTO 0.04 K/mm3 (0.00-0.23); BASOPHILS PERCENT AUTO 1 % (0-2); EOSINOPHILS ABSOLUTE AUTO 0.13 K/mm3 (0.00-0.68); EOSINOPHILS PERCENT AUTO 2 % (0-6); Hematocrit 23.9 % (33.0-51.0); Hemoglobin 7.7 g/dL (11.5-16.0); IMMATURE GRAN ABSOLUTE AUTO 0.01 K/mm3 (0.00-0.10); IMMATURE GRAN PERCENT AUTO 0 % (0-1); LYMPHOCYTES ABSOLUTE AUTO 1.01 K/mm3 (0.84-5.20); LYMPHOCYTES PERCENT AUTO 15 % (21-46); MONOCYTES ABSOLUTE AUTO 0.88 K/mm3 (0.16-1.47); MONOCYTES PERCENT AUTO 13 % (4-13); Mean Corpuscular HGB Conc 32.2 g/dL (31.5-36.5); Mean Corpuscular Volume 87 fL (80-100); NEUTROPHILS ABSOLUTE AUTO 4.79 K/mm3 (1.96-9.15); NEUTROPHILS PERCENT AUTO 70 % (41-73); NRBC ABSOLUTE 0.00 K/mm3 (0.00-0.02); NRBC Auto 0.0 /100 WBC (0.0-0.2); Platelet Count 307 K/mm3 (150-400); RDW Coefficient Variation 17.0 % (11.7-14.2); RDW Standard Deviation 51.0 fL (35.1-46.3)
[2025-02-27 09:37] LABS: Alanine Aminotransfer (ALT/SGP 21.0 U/L (12-78); Albumin, Blood 3.5 g/dL (3.4-5.0); Albumin/Globulin Ratio 1.2 (0.8-1.8); Anion Gap 7.0 mmol/L (3-11); Aspartate Aminotrans (AST/SGOT 27.0 U/L (12-37); Bilirubin, Total 0.8 mg/dL (0.1-1.0); Blood Urea Nitrogen 11.0 mg/dL (8-24); CO2, Blood 34.0 mmol/L (21-32); Calcium, Blood 8.9 mg/dL (8.5-10.1); Chloride, Blood 88.0 mmol/L (98-108); Creatinine, Blood 0.97 mg/dL (0.40-1.00); Globulin, Blood 3.0 g/dL (2.2-4.0); Glucose, Blood 94.0 mg/dL (70-99); Potassium, Blood 3.2 mmol/L (3.5-5.5); Sodium, Blood 126.0 mmol/L (136-145); Total Protein, Blood 6.5 g/dL (6.4-8.2)
[2025-02-27 12:06] VITALS: BP 131/87
[2025-02-27] MEDS ORDERED: Robaxin750 MG PO (13:28)
[2025-02-27] MEDS ORDERED: POTCHL20ER PO (13:30)
[2025-02-27] MEDS ORDERED: SPIR25 PO (13:31)
--- NOTE | 2025-02-27 14:45 | NUR ---
DISCHARGE NOTE: PT EDUCATION AND PACKET PROVIDED PRIOR TO D/C. TELE AND IV REMOVED. BELONGINGS GATHERED AND ASSISTED WITH DRESSING. O2 EDUCATION PROVIDED TO BOTH PT AND SON PRIOR TO LEAVING. SON TO TRANSPORT PT TO [facility]. ESCORTED OUT VIA W/C BY YOEL.
== END 2025-02-27 14:55 | disposition home or self-care (01) | DRG 291 ==
LOC: ER 13:47 → ERHOLD 13:48 → MEDS 13:48
PROVIDERS: Student in an Organized Health Care Education/Training Program; ADMIT Family Medicine
DX: I11.0 Hypertensive heart disease with heart failure (principal); I50.23 Acute on chronic systolic (congestive) heart failure; J96.01 Acute respiratory failure with hypoxia; E87.1 Hypo-osmolality and hyponatremia; I48.21 Permanent atrial fibrillation; I25.10 Atherosclerotic heart disease of native coronary artery without angina pectoris; G89.4 Chronic pain syndrome; Z66 Do not resuscitate; D64.9 Anemia, unspecified; M19.90 Unspecified osteoarthritis, unspecified site; F03.A0 Unspecified dementia, mild, without behavioral disturbance, psychotic disturbance, mood disturbance, and anxiety; M06.9 Rheumatoid arthritis, unspecified; E61.1 Iron deficiency; Z96.641 Presence of right artificial hip joint; I25.2 Old myocardial infarction; Z95.1 Presence of aortocoronary bypass graft; Z95.2 Presence of prosthetic heart valve; Z79.51 Long term (current) use of inhaled steroids; Z79.01 Long term (current) use of anticoagulants; Z79.02 Long term (current) use of antithrombotics/antiplatelets; Z79.899 Other long term (current) drug therapy; Z95.5 Presence of coronary angioplasty implant and graft
CPT/HCPCS: 36415; 71045; 80053; 82947; 83735; 83880; 84132; 85025; 87637; 93005; 93010; 93306; 94761; 94762; 96365; 96366; 96367; 96374; 96375; 96376; 97110; 97161; 97165; 97530; 97535; 99285-25; A6590; A9270; G0378; J0360; J1938; J2405; J2916; J3480

== ENCOUNTER 2025-03-16 02:38 | Day surgery (SDC) | payer OTHER ==
[~2025-03-16 02:38] MED LIST changes: +ALPR.25 PO; +GABA100 PO; +Methocarbamol500 MG PO; +POTCHL20ER PO; +Robaxin750 MG PO; +SPIR25 PO; +Sod Ferric Gluc Complx/Sucrose 125 MG in NS 100 ML IV SCH
[2025-03-16 14:13] VITALS: BP 140/66
== END 2025-03-16 15:29 | disposition home or self-care (01) ==
LOC: ATC 02:38
DX: D50.9 Iron deficiency anemia, unspecified (principal); I48.20 Chronic atrial fibrillation, unspecified; I48.21 Permanent atrial fibrillation; G89.4 Chronic pain syndrome; F41.8 Other specified anxiety disorders; K76.6 Portal hypertension; I11.0 Hypertensive heart disease with heart failure; I50.9 Heart failure, unspecified; J44.9 Chronic obstructive pulmonary disease, unspecified; Z87.891 Personal history of nicotine dependence; Z79.01 Long term (current) use of anticoagulants; Z79.899 Other long term (current) drug therapy; E78.00 Pure hypercholesterolemia, unspecified; G47.00 Insomnia, unspecified; Z91.09 Other allergy status, other than to drugs and biological substances
CPT/HCPCS: 96365; J2916

== ENCOUNTER 2025-03-23 04:28 | Day surgery (SDC) | payer OTHER ==
[2025-03-23 13:38] VITALS: BP 118/79
== END 2025-03-23 14:41 | disposition home or self-care (01) ==
LOC: ATC 04:28
DX: D50.9 Iron deficiency anemia, unspecified (principal); J44.9 Chronic obstructive pulmonary disease, unspecified; I11.0 Hypertensive heart disease with heart failure; I50.9 Heart failure, unspecified; I25.10 Atherosclerotic heart disease of native coronary artery without angina pectoris; I48.21 Permanent atrial fibrillation; F03.90 Unspecified dementia, unspecified severity, without behavioral disturbance, psychotic disturbance, mood disturbance, and anxiety; K21.9 Gastro-esophageal reflux disease without esophagitis; G89.4 Chronic pain syndrome; E78.00 Pure hypercholesterolemia, unspecified; F41.8 Other specified anxiety disorders; Z66 Do not resuscitate; Z87.891 Personal history of nicotine dependence; Z79.01 Long term (current) use of anticoagulants; Z79.02 Long term (current) use of antithrombotics/antiplatelets; Z79.899 Other long term (current) drug therapy; Z91.048 Other nonmedicinal substance allergy status
CPT/HCPCS: 96365; 99211; J2916

== ENCOUNTER 2025-04-06 00:42 | Day surgery (SDC) | payer OTHER ==
[~2025-04-06 00:42] MED LIST changes: -Sod Ferric Gluc Complx/Sucrose 125 MG in NS 100 ML IV SCH
[2025-04-06] MEDS ORDERED: Sod Ferric Gluc Complx/Sucrose 125 MG in NS 100 ML IV SCH (01:00)
[2025-04-06 16:45] VITALS: BP 127/82
== END 2025-04-06 17:38 | disposition home or self-care (01) ==
LOC: ATC 00:42
DX: D50.9 Iron deficiency anemia, unspecified (principal); I48.20 Chronic atrial fibrillation, unspecified; K21.9 Gastro-esophageal reflux disease without esophagitis; I25.10 Atherosclerotic heart disease of native coronary artery without angina pectoris; Z79.899 Other long term (current) drug therapy
CPT/HCPCS: 96365; J2916